=== PATIENT | female | born 1955 | race African-American/Black ===

== ENCOUNTER 2018-06-05 10:53 | Emergency (ER) | payer MEDICAID, SELFPAY ==
[2018-06-05 10:55] VITALS: BP 142/72; PULSE 103; RESP 36; TEMP 36.8; O2SAT 99; BMI 29.6
[2018-06-05 11:56] VITALS: BP 193/102; PULSE 71; RESP 16; O2SAT 98
[2018-06-05 11:56] LABS: Absolute Lymphocyte Count 1.76 X10^3/ul (0.83-4.51); Absolute Neutrophil Count 4.2 X10^3/uL (2.0-7.7); Basophil# 0.02 X10^3/uL; Basophil% 0.3 % (0-1); Eosinophils% 2.9 % (0-5); Hematocrit 40.6 % (37-47); Hemoglobin 13.3 g/dl (12.0-15.0); Lymphocyte # 1.76 X10^3/ul (4.0); Lymphocyte % 25.8 % (19-41); Mean Corp Hgb Conc 32.8 g/gl (32-36); Mean Corpuscular Hgb 30.8 pg (27.0-32.0); Mean Platelet Vol. 9.5 fl (6.2-12.0); Monocyte# 0.64 X10^3/uL; Monocyte% 9.4 % (0-10); Neutrophil # 4.19 X10^3/uL (2.7-7.7); Neutrophil % 61.3 % (47-70); POSITIVE COUNT NO; POSITIVE DIFFERENTIAL NO; POSITIVE MORPHOLOGY NO; Platelet Count 296 K/mm3 (150-450); RBC Distribution Width CV 12.7 % (11.6-14.6); RBC Distribution Width SD 43.7 fl (35.1-43.9); Red Blood Count 4.32 M/mm3 (4.2-5.4); White Blood Count 6.8 K/mm3 (4.4-11.0)
[2018-06-05] MEDS: 0.9% Normal Saline 1,000 ML 999 ML IV (12:00)
[2018-06-05 12:10] LABS: Anion Gap 7 (5-15); BUN 12 mg/dL (7-18); BUN/Creat Ratio 12.3 RATIO (10-20); Calcium,Total 8.8 mg/dL (8.5-10.1); Chloride 107 mmol/L (98-107); Creatinine, Serum 0.98 mg/dL (0.55-1.02); EST Glomerular Filtration Rate 61 mL/min (>60); Est Glom Filt Rate - Afr Amer 74 mL/min (>60); Estimated Creatinine Clearance 45.49 ml/min; Glucose 92 mg/dL (74-106); Potassium 4.2 mmol/L (3.5-5.1); Sodium Level 138 mmol/L (136-145)
--- NOTE | 2018-06-05 12:38 | ED.VISSUMM ---
- ER Visit Summary Date of Service: 06/05/18 Chief Complaint: Dizziness History of Present Illness: The patient is a 62 F who presents with dizziness. It started this morning. She states that she felt dizzy and had some nausea and vomiting this morning. She describes this dizziness as lightheadedness and shaky. She denies any abdominal pain. No chest pain. She feels mildly short of breath. EMS was called and upon arrival she was hyperventilating. Her symptoms did get better with coaching. Physical Examination: Vital signs reviewed. HEENT exam unremarkable. Heart is regular rate and rhythm without murmurs. Lungs are clear to auscultation. Abdomen is soft and nontender. Extremities reveal no edema. Skin exam normal. Neurologic exam shows that she is mildly tremulous. She is hyperventilating at times. Test Results: CBC and BMP are normal Emergency Department Course and Treatment: Patient was hydrated with normal saline. Her blood pressure was elevated upon arrival but is now 130/100. She feels much better. Patient will be discharged home. She will follow-up with her PCP. Treatment Plan: [] Disposition: Discharge Impression: Nausea and vomiting, hyperventilation This note was generated with [employer] dictation software. It may contain incorrect words, spelling, and punctuation that were not noted in review of the chart prior to signing ED Disposition - Plan for ED Patient: Disposition: Home or Assisted Living Instructions: ED Dizziness [facility] Referrals: Piotr Whitaker DO [Primary Care Provider] -
[2018-06-05 12:55] VITALS: BP 185/107; PULSE 70; RESP 16; RESP 18; O2SAT 100; O2SAT 97
== END 2018-06-05 13:13 | disposition home or self-care (01) ==
PROVIDERS: Emergency Provider Emergency Medicine; Family Provider Student in an Organized Health Care Education/Training Program; PCP Student in an Organized Health Care Education/Training Program
DX: R11.2 Nausea with vomiting, unspecified (principal); R06.4 Hyperventilation
CPT/HCPCS: 80048; 85025; 96360; 99283; J7030; A4216

== ENCOUNTER 2019-05-24 15:35 | Emergency (ER) | payer MEDICAID, SELFPAY ==
[2019-05-24] VITALS (7 sets, daily range): BP systolic 174–200; BP diastolic 109–134; PULSE 62–70; RESP 16–26; TEMP 36.4; O2SAT 96–100
--- NOTE | 2019-05-24 15:45 | EKG12_ITS ---
Test Reason : SOB Blood Pressure : / mmHG Vent. Rate : 062 BPM Atrial Rate : 062 BPM P-R Int : 148 ms QRS Dur : 078 ms QT Int : 430 ms P-R-T Axes : 031 -04 036 degrees QTc Int : 436 ms Normal sinus rhythm Moderate voltage criteria for LVH, may be normal variant Borderline ECG Confirmed by MELINA JASMINE, OCTAVIA ([id number]), science editor CIELO WEATHERS ([id number]) on 05/26/2019 1:43:38 PM Referred By: PEDRO Confirmed By:OCTAVIA SUMMERS MD
--- NOTE | 2019-05-24 15:46 | ED.DCSUM_ITS ---
History of Present Illness Chief Complaint: Shortness of Breath Informant: Patient Onset: Today Context: Sudden Onset Timing: Intermittent Current Severity: Moderate Maximum Severity: Moderate Narrative: Patient is a 63-year-old female with history of hypertension and prior smoking history that presents to the emergency department with shortness of breath. Patient states that she woke about 3 this morning. She states that laying flat, she feels like she cannot catch her breath. She states that she takes deep breath and tries to relax, will improve. Later this morning she began to have some central chest tightness that she was able to breathe through and it resolved. Did not radiate to her neck or to her arm. She does admit to some leg swelling bilaterally intermittently. She states that she did have a history of smoking but quit 3 years ago. She denies any history of coronary vascular disease. She states if she exerts herself, she does get winded easily. Prior similar symptoms: No Recent Illness/Hospitalization: No Past Medical History - Allergies and Home Meds Allergies/Adverse Reactions: Allergies No Known Allergies Allergy (Verified 05/24/19 15:38) Primary Care Physician: Piotr Whitaker DO [Primary Care Provider] - Prior records reviewed: Yes Past Medical History: - - Hypertension, smoking history Surgical History: noncontributory Smoking Status: Former smoker Review of Systems General: Denies: Chills, Fever, Sweats Eyes: Denies: Visual changes - bilaterally, Diplopia ENT: Denies: Rhinorrhea, Sore throat Cardiovascular: Denies: Chest pain, Palpitations Respiratory: Reports: Dyspnea, Cough, Dyspnea on exertion Gastrointestinal: Denies: Abdominal pain, Nausea, Vomiting, Diarrhea, Melena, Hematochezia Genitourinary: Denies: Dysuria, Hematuria, Frequency Musculoskeletal: Denies: Back pain, Extremity Pain Skin: Denies: Rash, Wounds Neurological: Denies: Headache, Weakness, Numbness Physical Exam Vital Signs/Narrative: Vital Signs Temp Pulse Resp BP Pulse Ox 05/24/19 15:36 97.5 F L 70 26 H 200/130 H 96 General: Well nourished, Well developed, No Acute Distress Head: Normocephalic, Atraumatic Eyes: Perrl, EOMI ENT: Moist mucous membranes, No rhinorrhea Neck: Supple, Nontender Cardiovascular: Regular rate, Regular rhythm, No murmurs Respiratory: No distress, Chest nontender, Rales, Decreased Air Movement Abdomen: Soft, Nontender, Nondistended, Normal bowel sounds Back: Nontender, Normal Inspection Extremities: Nontender, No edema Skin: Normal color, No rash Neurological: Alert, Oriented x3, Cranial nerves II-XII grossly intact, Normal Strength, Normal Sensation Psychological: Normal affect, Normal Mood Diagnostic/Tx/Re-eval Chest X-Ray - ED: 2 View, Normal, Lungs, Mediastinum, Cardiomegaly Clinical Impression(s) from Imaging Studies Chest X-Ray 05/24/19 15:49 IMPRESSION: 1. Stable cardiomegaly. 2. Linear atelectasis at the left lung base without acute pulmonary disease. Electronically Signed: Luis M Wheeler DO at 17:35 EST Tel [phone], Service support , Chest CTA 05/24/19 17:06 IMPRESSION: 1. No evidence of pulmonary embolus. 2. No aortic dissection or aneurysm. 3. Stable soft tissue mass in the anterior mediastinum. 4. No acute pulmonary disease. Electronically Signed: Luis M Wheeler DO at 18:09 EST Tel [phone], Service support , Abnormal Lab Results 05/24/19 05/24/19 05/24/19 16:12 16:12 16:12 WBC 5.5 RBC 4.07 L Hgb 12.5 Hct 38.5 MCV 94.6 MCH 30.7 MCHC 32.5 RDW Std Deviation 42.4 RDW Coeff of Cj 12.2 Plt Count 308 MPV 10.1 Immature Gran % (Auto) 0.200 Neut % (Auto) 55.6 Lymph % (Auto) 31.2 [place] % (Auto) 8.9 Eos % (Auto) 3.6 Baso % (Auto) 0.5 Absolute Neuts (auto) 3.0 Absolute Lymphs (auto) 1.71 Nucleated RBC % 0 Platelet Estimate ADEQUATE Plt Morphology Comment LARGE RBC Morphology N CHROM Anisocytosis RARE Macrocytosis RARE Sodium 138 Potassium 4.6 Chloride 109 H Carbon Dioxide 26.0 Anion Gap 3 L BUN 14 Creatinine 1.07 H Estim Creat Clear Calc 41.14 Est GFR (MDRD) Af Amer 67 Est GFR (MDRD) Non-Af 55 L BUN/Creatinine Ratio 13.1 Glucose 89 Calcium 9.2 Troponin I 0.019 B-Natriuretic Peptide 298.7 H Urine Color Urine Clarity Urine pH Ur Specific [place] Urine Protein Urine Glucose (UA) Urine Ketones Urine Occult Blood Urine Nitrite Urine Bilirubin Urine Urobilinogen Ur Leukocyte Esterase Urine RBC Urine WBC Ur Squamous Epith Cells Urine Bacteria Urine Mucus 05/24/19 17:12 WBC RBC Hgb Hct MCV MCH MCHC RDW Std Deviation RDW Coeff of Cj Plt Count MPV Immature Gran % (Auto) Neut % (Auto) Lymph % (Auto) [place] % (Auto) Eos % (Auto) Baso % (Auto) Absolute Neuts (auto) Absolute Lymphs (auto) Nucleated RBC % Platelet Estimate Plt Morphology Comment RBC Morphology Anisocytosis Macrocytosis Sodium Potassium Chloride Carbon Dioxide Anion Gap BUN Creatinine Estim Creat Clear Calc Est GFR (MDRD) Af Amer Est GFR (MDRD) Non-Af BUN/Creatinine Ratio Glucose Calcium Troponin I B-Natriuretic Peptide Urine Color Yellow Urine Clarity Clear Urine pH 7.0 Ur Specific [place] 1.010 Urine Protein Negative Urine Glucose (UA) Normal Urine Ketones Negative Urine Occult Blood Negative Urine Nitrite Negative Urine Bilirubin Negative Urine Urobilinogen Normal Ur Leukocyte Esterase Negative Urine RBC 0 SEEN Urine WBC 0 SEEN Ur Squamous Epith Cells 0-5 SEEN Urine Bacteria 0 SEEN Urine Mucus 0 SEEN - Rhythm Strip Rhythm Strip: Sinus Rhythm Rate: 80 Ectopy: None - EKG Initial EKG Interpretation: Sinus Rhythm, No Acute Injury Pattern Prior: Unchanged - Medical Decision Making Patient presents to the emergency department this lability with hypertensive on arrival, but had no chest pain. States she had some scant chest pain this morning that she felt was more anxiety related. EKG was obtained which was sinus without acute ischemia. Cardiac enzymes are normal. Chest x-ray shows cardiomegaly which is unchanged without evidence of acute volume overload. The patient is on oral estrogen medication. With his dyspnea, I did obtain a CTA. This shows no evidence of pulmonary embolus. There is also no pneumonia or evidence of volume overload. The patient was given her home dose of Lopressor with improvement of her blood pressure. I did discuss options with the patient and I did feel that observation for echo would be appropriate given her history, but the patient does not want to stay in the hospital. She has not had any significant chest pain and a rather unremarkable work-up I do feel that this is reasonable. I am not going to make the patient signed out AGAINST MEDICAL ADVICE, but did health counselor her that if her symptoms worsen or she begins to have any chest pain that she should return. She is comfortable with this plan of care. Impression 1. Dyspnea ED Disposition - Plan for ED Patient: Instructions: ED Dyspnea Referrals: Piotr Whitaker DO [Primary Care Provider] -
--- NOTE | 2019-05-24 15:49 | RAD_ITS ---
STUDY: X-RAY CHEST REASON FOR EXAM: Female, 63 years old. Shortness breath TECHNIQUE: Single AP portable view of the chest. COMPARISON: CT of the chest, February 24, 2010. FINDINGS: Lungs well expanded. There is minimal linear atelectasis at the left lung base. There is no demonstrated pleural abnormality. The heart is mildly enlarged. Normal mediastinum and minoo. Normal visualized pulmonary arteries. Tortuous aorta. The thoracic spine is obscured by the mediastinum. Normal visualized ribs, clavicles, and shoulders. There is no demonstrated abnormality of the visualized soft tissue structures of the upper abdomen. RAD/Chest 1 View (Portable) IMPRESSION: 1. Stable cardiomegaly. 2. Linear atelectasis at the left lung base without acute pulmonary disease. Electronically Signed: Luis M Wheeler DO at 17:35 EST Tel [phone], Service support ,
[2019-05-24] MEDS: Aspirin 81 MG TAB.CHEW 324 MG PO (16:04)
[2019-05-24 16:23] LABS: Absolute Lymphocyte Count 1.71 X10^3/uL (0.83-4.51); Basophil# 0.03 X10^3/uL; Basophil% 0.5 % (0-1); Eosinophils% 3.6 % (0-5); Hematocrit 38.5 % (37-47); Hemoglobin 12.5 g/dL (12.0-15.0); Lymphocyte # 1.71 X10^3/ul (4.0); Lymphocyte % 31.2 % (19-41); Mean Corp Hgb Conc 32.5 g/dL (32-36); Mean Corpuscular Hgb 30.7 pg (27.0-32.0); Mean Corpuscular Volume 94.6 fL (81-99); Mean Platelet Vol. 10.1 fl (6.2-12.0); Monocyte# 0.49 X10^3/uL; Monocyte% 8.9 % (0-10); NRBC Flagged by Analyzer 0 % (0-5); Neutrophil # 3.04 X10^3/uL (2.7-7.7); Neutrophil % 55.6 % (47-70); POSITIVE MORPHOLOGY YES; Platelet Count 308 K/mm3 (150-450); RBC Distribution Width CV 12.2 % (11.6-14.6); RBC Distribution Width SD 42.4 fl (35.1-43.9); Red Blood Count 4.07 M/mm3 (4.2-5.4); White Blood Count 5.5 K/mm3 (4.4-11.0)
[2019-05-24 16:24] LABS: Differential Indicated SCAN CRITERIA MET
[2019-05-24] MEDS: Nitroglycerin SL (ED/IMG/CATH) 0.4 MG TABLET SUBLINGUAL (16:40)
[2019-05-24 16:46] LABS: Anisocytosis RARE; Macrocytosis RARE; Platelet Estimate ADEQUATE (ADEQ); Platelet Morphology LARGE; Red Cell Morphology N CHROM NORMAL (NORM C&C)
[2019-05-24 16:55] LABS: Anion Gap 3 (5-15); BUN 14 mg/dL (7-18); BUN/Creat Ratio 13.1 RATIO (10-20); Calcium,Total 9.2 mg/dL (8.5-10.1); Chloride 109 mmol/L (98-107); Creatinine, Serum 1.07 mg/dL (0.55-1.02); EST Glomerular Filtration Rate 55 mL/min (>60); Est Glom Filt Rate - Afr Amer 67 mL/min (>60); Estimated Creatinine Clearance 41.14 ml/min; Glucose 89 mg/dL (74-106); Potassium 4.6 mmol/L (3.5-5.1); Sodium Level 138 mmol/L (136-145)
--- NOTE | 2019-05-24 17:06 | CT_ITS ---
STUDY: CTA CHEST REASON FOR EXAM: Female, 63 years old. Dyspnea. RADIATION DOSAGE (If Supplied By Facility): CTDIvol = ( 14.37 ) mGy, DLP = ( 306.98 ) mGycm TECHNIQUE: The examination was performed with the intravenous administration of IV 75mL Isovue-370. Post-processing of the angiographic images was performed, with multiplanar reformation and 3D reconstruction. Individualized dose optimization techniques were used for this CT. COMPARISON: Chest2019. CT of the chest, February 24, 2010. FINDINGS: Normal enhancement of the main pulmonary artery and right and left pulmonary arteries. Normal enhancement of the bilateral peripheral pulmonary arteries. There is no demonstrated pulmonary embolism. Normal thoracic aorta and visualized great vessels. There is no demonstrated aortic dissection. Normal heart and pericardium. Soft tissue density in the anterior mediastinum measuring 3.1 x 1.8 x 1.0 cm. Normal hilar regions. Normal visualized trachea and bronchi. The lungs are well expanded. Normal pulmonary parenchyma. Normal pleura. Normal chest wall structures. There are mild degenerative changes of the thoracic spine. Normal visualized upper abdomen. CT/CTA Chest W/WO Contrast IMPRESSION: 1. No evidence of pulmonary embolus. 2. No aortic dissection or aneurysm. 3. Stable soft tissue mass in the anterior mediastinum. 4. No acute pulmonary disease. Electronically Signed: Luis M Wheeler DO at 18:09 EST Tel [phone], Service support ,
[2019-05-24 17:13] LABS: BNP,B-Type NATRIURETIC PEPTIDE 298.7 pg/mL (0-100)
[2019-05-24 17:23] LABS: Bacteria 0 SEEN /hpf (None Seen); Mucous, Urine 0 SEEN /hpf (<or=2+); Red Blood Cells-Urine 0 SEEN /hpf (0-5); White Blood Cells 0 SEEN /hpf (0-5)
[2019-05-24 17:37] LABS: Color, Urine Yellow (Yellow); Glucose, Dipstick Normal (Normal); Ketone-Dipstick Negative (Negative); Leukocyte Esterase-Dipstick Negative /ul (Negative); Nitrite-Dipstick Negative (Negative); Occult Blood-Urine Negative /ul (Negative); Protein-Dipstick Negative (Negative); Urine Bilirubin Dipstick Negative (Negative); Urine Clarity Clear (Clear); Urine Urobilinogen Normal (Normal)
[2019-05-24 17:56] LABS: Squamous Epithelial Cells - UA 0-5 SEEN /hpf (5-10)
[2019-05-24] MEDS: Metoprolol Tartrate 50 MG Tablet PO (17:59)
--- NOTE | 2019-05-24 18:38 | NURSING ---
DR. PACHECO NOTIFIED OF BP BY RNWilton BALLARD TO [place].
== END 2019-05-24 18:40 | disposition home or self-care (01) ==
PROVIDERS: Emergency Provider Emergency Medicine; PCP Student in an Organized Health Care Education/Training Program
DX: R06.00 Dyspnea, unspecified (principal); I11.9 Hypertensive heart disease without heart failure; J98.11 Atelectasis; J98.59 Other diseases of mediastinum, not elsewhere classified; Z79.899 Other long term (current) drug therapy; Z87.891 Personal history of nicotine dependence
CPT/HCPCS: 71045; 71275; 80048; 81001; 83880; 84484; 85025; 93005; 99285; Q9967; A4216

== ENCOUNTER 2019-07-12 14:58 | Emergency (ER) | payer MEDICAID, SELFPAY ==
[2019-07-12 14:59] VITALS: BP 165/118; PULSE 93; RESP 20; TEMP 36; O2SAT 100; BMI 29.5
--- NOTE | 2019-07-12 15:09 | RAD_ITS ---
STUDY: X-RAY CHEST REASON FOR EXAM: Female, 63 years old. COUGH, NUMBNESS TECHNIQUE: Single AP portable view of the chest. COMPARISON: None. FINDINGS: Hyperinflation. Stable minimal linear markings in the mid left lung suggestive of scarring. There is no demonstrated pleural abnormality. Normal size heart. Normal mediastinum and minoo. Normal visualized pulmonary arteries. There is atherosclerotic tortuosity of the aortic arch and descending thoracic aorta. There are degenerative changes of the visualized thoracic spine. Normal visualized ribs, clavicles, and shoulders. There is no demonstrated abnormality of the visualized soft tissue structures of the upper abdomen. RAD/Chest 1 View IMPRESSION: Stable linear density in the left midlung suggestive of scarring. Electronically Signed: Enzo Chappell, at 15:27 EDT , Service support ,
--- NOTE | 2019-07-12 15:09 | CT_ITS ---
STUDY: CT BRAIN WITHOUT CONTRAST REASON FOR EXAM: Female, 63 years old. RIGHT ARM NUMBNESS/TONGUE NUMBNESS RADIATION DOSAGE (If Supplied By Facility): CTDIvol = ( 44.99 ) mGy, DLP = ( 745.49 ) mGycm TECHNIQUE: Transaxial CT imaging of the brain was performed without administration of intravenous contrast material. Individualized dose optimization techniques were used for this CT. COMPARISON: No relevant priors. FINDINGS: Normal soft tissue structures. Normal calvarium. Normal size ventricles and extra-axial spaces for the patient''s age. Normal white matter tracts of the cerebral hemispheres. Normal basal ganglia and thalami. Normal brainstem. Normal cerebellum. There is no intracranial hemorrhage. There are no findings of an acute ischemic infarction. Normal visualized paranasal sinuses. CT/Brain/Head without Contrast IMPRESSION: Normal unenhanced CT scan of the brain. Electronically Signed: Enzo Chappell, at 15:35 EDT , Service support ,
--- NOTE | 2019-07-12 15:09 | EKG12_ITS ---
Test Reason : NEURO S/SX Blood Pressure : / mmHG Vent. Rate : 065 BPM Atrial Rate : 065 BPM P-R Int : 160 ms QRS Dur : 090 ms QT Int : 432 ms P-R-T Axes : 054 -06 040 degrees QTc Int : 449 ms Normal sinus rhythm Moderate voltage criteria for LVH, may be normal variant Borderline ECG Confirmed by STONE JASMINE, BRENNAN ([id number]), web editor NAVEED STRAUSS ([id number]) on 07/19/2019 11:08:24 AM Referred By: NARESH Confirmed By:SHADY RITTER MD
--- NOTE | 2019-07-12 15:10 | ED.DCSUM_ITS ---
History of Present Illness Chief Complaint: Numb/Ting Informant: Patient Onset: Today Context: Sudden Onset Timing: Intermittent, Lasts Current Severity: Mild Maximum Severity: Mild - 1 minute Narrative: The patient is a 63-year-old female with medical history significant for hypertension who presents to the emergency department with transient numbness that is since resolved. The patient states she was in her normal state of health. She states she is talking to her and was tapping her hand onto her refrigerator. She states that she then noticed that her hand felt numb and her arm felt numb. She states it lasted less than a minute. She also noticed some numbness of the right side of her tongue. She states this also lasted about a minute. She denies any trouble speaking or swallowing. She denies any visual change. She had no weakness, just the paresthesia. She states she is otherwise been in her normal state of health. She was recently started on amlodipine and has been compliant with it. Prior similar symptoms: No Recent Illness/Hospitalization: No Past Medical History - Allergies and Home Meds Allergies/Adverse Reactions: Allergies No Known Allergies Allergy (Verified 07/12/19 14:59) Primary Care Physician: Piotr Whitaker DO [Primary Care Provider] - 1 Day Prior records reviewed: Yes Past Medical History: - - Hypertension Surgical History: noncontributory Smoking Status: Former smoker Review of Systems General: Denies: Chills, Fever, Sweats Eyes: Denies: Visual changes - bilaterally, Diplopia ENT: Denies: Rhinorrhea, Sore throat Cardiovascular: Denies: Chest pain, Palpitations Respiratory: Denies: Dyspnea, Cough, Dyspnea on exertion Gastrointestinal: Denies: Abdominal pain, Nausea, Vomiting, Diarrhea, Melena, Hematochezia Genitourinary: Denies: Dysuria, Hematuria, Frequency Musculoskeletal: Denies: Back pain, Extremity Pain Skin: Denies: Rash, Wounds Neurological: Denies: Headache, Weakness, Numbness Physical Exam Vital Signs/Narrative: Vital Signs Temp Pulse Resp BP Pulse Ox 07/12/19 14:59 96.8 F L 93 20 H 165/118 H 100 Inital Vital Signs reviewed: Yes General: Well nourished, Well developed, No Acute Distress Head: Normocephalic, Atraumatic Eyes: Perrl, EOMI ENT: Moist mucous membranes, No rhinorrhea Neck: Supple, Nontender Cardiovascular: Regular rate, Regular rhythm, No murmurs Respiratory: No distress, CTA bilaterally, Chest nontender Abdomen: Soft, Nontender, Nondistended, Normal bowel sounds Back: Nontender, Normal Inspection Extremities: Nontender, No edema Skin: Normal color, No rash Neurological: Alert, Oriented x3, Cranial nerves II-XII grossly intact, Normal Strength, Normal Sensation Psychological: Normal affect, Normal Mood Diagnostic/Tx/Re-eval Clinical Impression(s) from Imaging Studies Brain CT 07/12/19 15:09 IMPRESSION: Normal unenhanced CT scan of the brain. Electronically Signed: Enzo Misti, at 15:35 EDT , Service support , Chest X-Ray 07/12/19 15:09 IMPRESSION: Stable linear density in the left midlung suggestive of scarring. Electronically Signed: Enzo Misti, at 15:27 EDT , Service support , Abnormal Lab Results 07/12/19 07/12/19 07/12/19 15:33 15:33 15:33 WBC 5.1 RBC 4.21 Hgb 13.1 Hct 39.9 MCV 94.8 MCH 31.1 MCHC 32.8 RDW Std Deviation 42.5 RDW Coeff of Cj 12.2 Plt Count 275 MPV 9.8 Immature Gran % (Auto) 0.200 Neut % (Auto) 60.0 Lymph % (Auto) 26.9 [place] % (Auto) 9.1 Eos % (Auto) 3.4 Baso % (Auto) 0.4 Absolute Neuts (auto) 3.0 Absolute Lymphs (auto) 1.36 Nucleated RBC % 0 PT 13.7 INR 1.1 APTT 29.3 Sodium 139 Potassium 3.7 Chloride 108 H Carbon Dioxide 26.0 Anion Gap 5 BUN 17 Creatinine 1.09 H Estim Creat Clear Calc 40.38 Est GFR (MDRD) Af Amer 65 Est GFR (MDRD) Non-Af 54 L BUN/Creatinine Ratio 15.6 Glucose 96 Calcium 9.0 Troponin I < 0.015 - Rhythm Strip Rhythm Strip: Sinus Rhythm Rate: 90 Ectopy: None - EKG Initial EKG Interpretation: Sinus Rhythm, No Acute Injury Pattern Prior: Unchanged - Medical Decision Making The patient is a 63-year-old female presents to the emergency department with 2 minutes of paresthesias of her right arm and right tongue. It is now since resolved. She was hypertensive on arrival, but has an NIH of 0. The patient has an ABCD 2 score of 2. Without intervention, her repeat blood pressure was 150/90. Metabolic work-up was pursued. CT head was unremarkable for acute process. EKG was unremarkable. Labs were normal. I did have a long conversation with the patient. She wants to follow-up as an outpatient, and given her low risk I do feel that this is reasonable. The patient is comfortable with this plan of care. She will be discharged home. Impression 1. Paresthesias of right arm ED Disposition - Plan for ED Patient: Instructions: What Is a TIA? Referrals: Piotr Whitaker DO [Primary Care Provider] - 1 Day
[2019-07-12 15:37] VITALS: BP 179/118; PULSE 80; RESP 19; O2SAT 96
[2019-07-12 15:39] VITALS: BP 174/123; PULSE 72; RESP 15; O2SAT 97
[2019-07-12 15:40] LABS: Absolute Lymphocyte Count 1.36 X10^3/uL (0.83-4.51); Basophil# 0.02 X10^3/uL; Basophil% 0.4 % (0-1); Eosinophil# 0.17 X10^3/uL; Eosinophils% 3.4 % (0-5); Hematocrit 39.9 % (37-47); Hemoglobin 13.1 g/dL (12.0-15.0); Lymphocyte # 1.36 X10^3/ul (4.0); Lymphocyte % 26.9 % (19-41); Mean Corp Hgb Conc 32.8 g/dL (32-36); Mean Corpuscular Hgb 31.1 pg (27.0-32.0); Mean Corpuscular Volume 94.8 fL (81-99); Mean Platelet Vol. 9.8 fl (6.2-12.0); Monocyte# 0.46 X10^3/uL; Monocyte% 9.1 % (0-10); NRBC Flagged by Analyzer 0 % (0-5); Neutrophil # 3.03 X10^3/uL (2.7-7.7); Platelet Count 275 K/mm3 (150-450); RBC Distribution Width CV 12.2 % (11.6-14.6); RBC Distribution Width SD 42.5 fl (35.1-43.9); Red Blood Count 4.21 M/mm3 (4.2-5.4); White Blood Count 5.1 K/mm3 (4.4-11.0)
[2019-07-12 16:11] LABS: Anion Gap 5 (5-15); BUN 17 mg/dL (7-18); BUN/Creat Ratio 15.6 RATIO (10-20); Chloride 108 mmol/L (98-107); Creatinine, Serum 1.09 mg/dL (0.55-1.02); EST Glomerular Filtration Rate 54 mL/min (>60); Est Glom Filt Rate - Afr Amer 65 mL/min (>60); Estimated Creatinine Clearance 40.38 ml/min; Glucose 96 mg/dL (74-106); Potassium 3.7 mmol/L (3.5-5.1); Sodium Level 139 mmol/L (136-145)
[2019-07-12 16:18] LABS: International Normalized Ratio 1.1; Prothrombin Time (Protime)PT. 13.7 SECONDS (11.7-14.9)
[2019-07-12 16:19] LABS: Partial Thromboplast Time 29.3 Seconds (24.1-36.2)
[2019-07-12 16:32] VITALS: BP 172/110; PULSE 88; RESP 16; O2SAT 97
== END 2019-07-12 16:34 | disposition home or self-care (01) ==
LOC: ED 15:13
PROVIDERS: Emergency Provider Emergency Medicine; PCP Student in an Organized Health Care Education/Training Program
DX: R20.2 Paresthesia of skin (principal); R20.0 Anesthesia of skin; I10 Essential (primary) hypertension; Z79.899 Other long term (current) drug therapy; Z87.891 Personal history of nicotine dependence
CPT/HCPCS: 70450; 71045; 80048; 84484; 85025; 85610; 85730; 93005; 96374; 99284; A4216

== ENCOUNTER 2020-06-16 09:48 | Inpatient (IN) | payer MEDICAID, SELFPAY ==
[2020-06-16] VITALS (28 sets, daily range): BP systolic 128–205; BP diastolic 81–134; PULSE 72–92; RESP 11–34; TEMP 35.9–36.6; O2SAT 91–100; BMI 29.7; BMI 28.3
--- NOTE | 2020-06-16 09:59 | EKG12_ITS ---
Test Reason : SOB Blood Pressure : / mmHG Vent. Rate : 083 BPM Atrial Rate : 083 BPM P-R Int : 140 ms QRS Dur : 076 ms QT Int : 386 ms P-R-T Axes : 056 014 067 degrees QTc Int : 453 ms Normal sinus rhythm Possible Left atrial enlargement Left ventricular hypertrophy Abnormal ECG Confirmed by MANUEL JASMINE, MERLE ([id number]), video tape editor CIELO WEATHERS ([id number]) on 06/19/2020 10:56:38 AM Referred By: Confirmed By:MERLE JACKSON MD
--- NOTE | 2020-06-16 10:15 | ED.VIS.GEN ---
History of Present Illness Chief Complaint: Shortness of Breath Informant: Patient Onset: Days - Shortness of breath has gotten worse over the past 5 days Context: Sudden Onset Timing: Continuous Quality: Dyspnea and dyspnea on exertion Location: Respiratory Current Severity: Mild Maximum Severity: Moderate Worsened by: Unable to walk more than 25 feet. Relieved by: Nothing Associated Symptoms: Denies chest pain, swelling. Does report mild nasal congestion. Narrative: Patient is a 64-year-old woman with history hypertension. She states her blood pressure meds have been changed. She denies renal disease. She denies diabetes. She denies history of cardiac disease and specifically congestive heart failure. She denies orthopnea or PND. She denies fever, chills night sweats. Denies ocular, visual auditory symptoms. She does report mild nasal congestion. She denies sinus discomfort. She denies postnasal drainage. Denies sore throat. Denies loss of taste or smell. She denies chest discomfort. She denies nausea, vomiting or diarrhea. She denies dysuria, frequency, urgency or hematuria. She denies swelling, discoloration of her lower extremities and denies pain. She denies symptoms of claudication. She has an occasional cough that is nonproductive. She denies history of VTE. She denies black or maroon-colored stool. Prior similar symptoms: No Recent Illness/Hospitalization: No - Past Medical History (1) History of hypertension Status: Acute Past Medical History - Allergies and Home Meds Allergies/Adverse Reactions: Allergies No Known Allergies Allergy (Verified 06/16/20 09:52) Primary Care Physician: Piotr Whitaker DO [Primary Care Provider] - Prior records reviewed: Yes Surgical History: noncontributory Lives: Spouse/ Significant Other Smoking Status: Former smoker Alcohol: None Drugs: None Review of Systems General: Denies: Chills, Fever, Malaise, Subjective Eyes: Denies: Visual changes - bilaterally, Blurred Vision - bilaterally ENT: Reports: Rhinorrhea. Denies: Bilateral ear pain, Sore throat Cardiovascular: Denies: Chest pain, Palpitations, Heart racing Respiratory: Reports: Dyspnea, Cough, Dyspnea on exertion. Denies: Sputum, Orthopnea, Paroxysmal nocturnal dyspnea Gastrointestinal: Denies: Abdominal pain, Nausea, Vomiting, Diarrhea, Melena, Hematochezia Genitourinary: Denies: Dysuria, Hematuria, Frequency Musculoskeletal: Denies: Myalgias, Arthralgias, Neck pain, Back pain, Swelling, Extremity Pain, -, - Skin: Denies: Rash, Wounds Neurological: Denies: Headache, Weakness, Parasthesia Psych: Denies: Depression Endocrine: Denies: Polyuria, Polydipsia Hematologic: Denies: Easy bruising, Easy bleeding Physical Exam Vital Signs/Narrative: Vital Signs Temp Pulse Resp BP Pulse Ox 06/16/20 09:51 96.6 F L 73 34 H 205/134 H 100 06/16/20 09:49 96.6 F L 79 34 H 205/134 H 99 Inital Vital Signs reviewed: Yes General: Well nourished, Well developed, Acute Distress - And has mild retractions sitting in bed. She is tachypneic. Head: Normocephalic, Atraumatic Eyes: Perrl, EOMI. Negative for: Pale conjunctiva, Scleral icterus ENT: Moist mucous membranes, No rhinorrhea, TM's clear Neck: Supple, Nontender, No lymphadenopathy, No JVD Cardiovascular: Regular rate, Regular rhythm, No murmurs, Normal S1, Normal S2 Respiratory: No distress, CTA bilaterally, Chest nontender Abdomen: Soft, Nontender, Nondistended, Normal bowel sounds, No masses. Negative for: Hepatomegaly, Splenomegaly, Mass, Pulsatile mass Rectal: Deferred Back: Nontender, Normal Inspection. Negative for: CVA tenderness Extremities: Nontender, No edema, - - There is no asymmetry, swelling, discoloration, leg vein distention, palpable cords or tenderness along the distribution of the deep venous system. Skin: Normal color, No rash, No Trauma, - - No stigmata of PAD lower extremities.. Negative for: Cyanosis, Diaphoresis, Jaundice Neurological: Alert, Oriented x3, Cranial nerves II-XII grossly intact, Normal Strength, Normal Sensation Psychological: Normal affect Diagnostic/Tx/Re-eval Chest X-Ray - ED: 1 View, Read by ED Physician, Normal, Heart, Mediastinum, Bony Structures, CHF, - - Silhouette and size is normal. There is no cephalization however there is increased interstitial markings compared to June 2019 and there are curly B-lines. X-ray was interpreted by me at 1115 06/16/20 11:02 Chest 1 View (Portable) [RAD] Stat 06/16/20 10:15 Mucosa - Nose SARS-CoV-2 Antigen (Rapid) - Final Laboratory Results 06/16/20 06/16/20 06/16/20 10:10 10:10 10:10 WBC 5.0 RBC 4.07 L Hgb 12.7 Hct 39.0 MCV 95.8 MCH 31.2 MCHC 32.6 RDW Std Deviation 43.9 RDW Coeff of Cj 12.5 Plt Count 305 MPV 10.6 Immature Gran % (Auto) 0.200 Neut % (Auto) 60.5 Lymph % (Auto) 28.2 [place] % (Auto) 9.1 Eos % (Auto) 1.2 Baso % (Auto) 0.8 Absolute Neuts (auto) 3.0 Absolute Lymphs (auto) 1.40 Nucleated RBC % 0 PT 13.3 INR 1.1 APTT 24.4 Sodium 138 Potassium 4.1 Chloride 106 Carbon Dioxide 27.0 Anion Gap 5 BUN 14 Creatinine 1.05 H Estim Creat Clear Calc 41.38 Est GFR (MDRD) Af Amer 68 Est GFR (MDRD) Non-Af 56 L BUN/Creatinine Ratio 13.3 Glucose 172 H Lactic Acid Calcium 8.9 Total Bilirubin 0.70 AST 84 H ALT 70 H Alkaline Phosphatase 118 H Troponin I < 0.015 B-Natriuretic Peptide Total Protein 7.8 Albumin 3.9 Globulin 3.9 Albumin/Globulin Ratio 1.0 Urine Color Urine Clarity Urine pH Ur Specific [place] Urine Protein Urine Glucose (UA) Urine Ketones Urine Occult Blood Urine Nitrite Urine Bilirubin Urine Urobilinogen Ur Leukocyte Esterase POC Glucose 06/16/20 06/16/20 06/16/20 10:10 10:10 11:00 WBC RBC Hgb Hct MCV MCH MCHC RDW Std Deviation RDW Coeff of Cj Plt Count MPV Immature Gran % (Auto) Neut % (Auto) Lymph % (Auto) [place] % (Auto) Eos % (Auto) Baso % (Auto) Absolute Neuts (auto) Absolute Lymphs (auto) Nucleated RBC % PT INR APTT Sodium Potassium Chloride Carbon Dioxide Anion Gap BUN Creatinine Estim Creat Clear Calc Est GFR (MDRD) Af Amer Est GFR (MDRD) Non-Af BUN/Creatinine Ratio Glucose Lactic Acid 2.2 H* Calcium Total Bilirubin AST ALT Alkaline Phosphatase Troponin I B-Natriuretic Peptide 504.4 H Total Protein Albumin Globulin Albumin/Globulin Ratio Urine Color Urine Clarity Urine pH Ur Specific [place] Urine Protein Urine Glucose (UA) Urine Ketones Urine Occult Blood Urine Nitrite Urine Bilirubin Urine Urobilinogen Ur Leukocyte Esterase POC Glucose 124 H 06/16/20 11:02 WBC RBC Hgb Hct MCV MCH MCHC RDW Std Deviation RDW Coeff of Cj Plt Count MPV Immature Gran % (Auto) Neut % (Auto) Lymph % (Auto) [place] % (Auto) Eos % (Auto) Baso % (Auto) Absolute Neuts (auto) Absolute Lymphs (auto) Nucleated RBC % PT INR APTT Sodium Potassium Chloride Carbon Dioxide Anion Gap BUN Creatinine Estim Creat Clear Calc Est GFR (MDRD) Af Amer Est GFR (MDRD) Non-Af BUN/Creatinine Ratio Glucose Lactic Acid Calcium Total Bilirubin AST ALT Alkaline Phosphatase Troponin I B-Natriuretic Peptide Total Protein Albumin Globulin Albumin/Globulin Ratio Urine Color Straw Urine Clarity Clear Urine pH 8.0 Ur Specific [place] 1.015 Urine Protein Negative Urine Glucose (UA) 50 H Urine Ketones Negative Urine Occult Blood Negative Urine Nitrite Negative Urine Bilirubin Negative Urine Urobilinogen Normal Ur Leukocyte Esterase Negative POC Glucose - EKG Initial EKG Interpretation: Sinus Rhythm - Normal sinus rhythm with a ventricular rate 83. OR interval is 140 ms. Cures duration 76 ms. QT duration is 386 ms. [place] is normal. Patient does have a prominent T waves to suggest left atrial enlargement and there is evidence of LVH which may represent endorgan injury due to uncontrolled hyper - Medical Decision Making Patient appears dyspneic. She states she is not able to walk from room to room. She had difficulty walking up the steps. Need to rule out cardiac versus pulmonary etiology. Work-up included EKG, chest x-ray, CBC to assess white count and rule out anemia. Electrolyte panel to rule out renal dysfunction. If patient's blood pressure remains elevated will initiate treatment. Repeat readings remain high. Most recent blood pressure is 191/120. Patient is on beta-shweta and calcium channel shweta. 20 mg of labetalol was ordered. Patient's lactate elevated. This may be due to the hyperglycemia. Lactic acidosis can be caused from overuse of inhaler; however, patient states she has not used her inhaler this morning.. Therefore it is not due to overuse of her albuterol MDI. This may also represent endorgan injury because of her elevated blood pressure. Will page hospitalist for admission. ALT and AST are elevated this is most likely due to hepatic congestion from endorgan injury, CHF - Critical Care Time Critical care time (excluding procedures): 30-74 minutes - Critical care time 36 minutes. This includes obtaining history, physical exam, review of prior records, documentation, interpretation of laboratory results and initiation of therapy, Discussing w/Patient &/or Family/Salesperson [employer], Discussing w/Consultants, Arranging Admission or Transfer ED Disposition - Plan for ED Patient: Disposition: Acute Care [facility] Diagnosis: Hypertensive emergency, Congestive heart failure due to high blood pressure, Hyperglycemia, Lactic acidosis, Elevated serum creatinine Referrals: Piotr Whitaker DO [Primary Care Provider] -
[2020-06-16 11:01] LABS: Basophil# 0.04 X10^3/uL; Basophil% 0.8 % (0-1); Eosinophil# 0.06 X10^3/uL; Eosinophils% 1.2 % (0-5); Hemoglobin 12.7 g/dL (12.0-15.0); Lymphocyte % 28.2 % (19-41); Mean Corp Hgb Conc 32.6 g/dL (32-36); Mean Corpuscular Hgb 31.2 pg (27.0-32.0); Mean Corpuscular Volume 95.8 fL (81-99); Mean Platelet Vol. 10.6 fl (6.2-12.0); Monocyte# 0.45 X10^3/uL; Monocyte% 9.1 % (0-10); NRBC Flagged by Analyzer 0 % (0-5); Neutrophil % 60.5 % (47-70); Platelet Count 305 K/mm3 (150-450); RBC Distribution Width CV 12.5 % (11.6-14.6); RBC Distribution Width SD 43.9 fl (35.1-43.9); Red Blood Count 4.07 M/mm3 (4.2-5.4)
--- NOTE | 2020-06-16 11:02 | RAD_ITS ---
STUDY: X-RAY CHEST REASON FOR EXAM: Female, 64 years old. Pt having increased sob x 5 days, difficulty breathing, tachypnea TECHNIQUE: Single AP portable view of the chest. COMPARISON: Comparison is made with prior study dated 07/12/2019. FINDINGS: EKG leads are seen. There is evidence of a mild degree of CHF. There is no demonstrated pleural abnormality. There is borderline cardiomegaly. Normal mediastinum and minoo. Normal visualized pulmonary arteries. There is atherosclerotic tortuosity of the aortic arch and descending thoracic aorta. Normal visualized thoracic spine. Normal visualized ribs, clavicles, and shoulders. There is no demonstrated abnormality of the visualized soft tissue structures of the upper abdomen. RAD/Chest 1 View (Portable) IMPRESSION: Mild degree of CHF. Electronically Signed: Enzo Chappell MD at 11:38 EST , Service support ,
[2020-06-16 11:06] LABS: Bedside Glucose 124 mg/dL (70-110)
[2020-06-16 11:13] LABS: Mucous, Urine 0 SEEN /hpf (<or=2+); Red Blood Cells-Urine 0 SEEN /hpf (0-5); White Blood Cells 0 SEEN /hpf (0-5)
[2020-06-16 11:15] LABS: AST(SGOT) 84 U/L (15-37); Alanine Aminotransfer ALT/SGPT 70 U/L (13-56); Albumin, Serum 3.9 g/dL (3.2-5.0); Alkaline Phosphatase 118 U/L (45-117); Anion Gap 5 (5-15); BUN 14 mg/dL (7-18); BUN/Creat Ratio 13.3 RATIO (10-20); Calcium,Total 8.9 mg/dL (8.5-10.1); Chloride 106 mmol/L (98-107); Creatinine, Serum 1.05 mg/dL (0.55-1.02); EST Glomerular Filtration Rate 56 mL/min (>60); Est Glom Filt Rate - Afr Amer 68 mL/min (>60); Estimated Creatinine Clearance 41.38 ml/min; Globulin 3.9 g/dL (2.2-4.2); Glucose 172 mg/dL (74-106); Potassium 4.1 mmol/L (3.5-5.1); Protein, Total 7.8 g/dL (6.4-8.2); Sodium Level 138 mmol/L (136-145)
[2020-06-16 11:18] LABS: International Normalized Ratio 1.1; Prothrombin Time (Protime)PT. 13.3 SECONDS (11.7-14.9)
[2020-06-16 11:19] LABS: BNP,B-Type NATRIURETIC PEPTIDE 504.4 pg/mL (0-100); Partial Thromboplast Time 24.4 Seconds (24.1-36.2)
[2020-06-16] MEDS: Labetalol (Prefilled) 20 MG/4 ML IV (11:22)
[2020-06-16 11:26] LABS: Color, Urine Straw (Yellow); Glucose, Dipstick 50 mg/dl (Normal); Ketone-Dipstick Negative (Negative); Leukocyte Esterase-Dipstick Negative /ul (Negative); Nitrite-Dipstick Negative (Negative); Occult Blood-Urine Negative /ul (Negative); Protein-Dipstick Negative (Negative); Specific Gravity, Urine 1.015 (1.002-1.030); Urine Bilirubin Dipstick Negative (Negative); Urine Clarity Clear (Clear); Urine Urobilinogen Normal (Normal)
[2020-06-16 11:28] LABS: Lactic Acid 2.2 mmol/L (0.4-1.9)
[2020-06-16 11:37] LABS: Bacteria RARE /hpf (None Seen); Squamous Epithelial Cells - UA 0-5 SEEN /hpf (5-10)
--- NOTE | 2020-06-16 12:24 | HP.PCM_ITS ---
Problem List (1) Hypertension Status: Chronic (2) Acute pulmonary edema Status: Acute (3) Hypertensive emergency Status: Acute (4) Hyperglycemia Status: Acute (5) Lactic acidosis Status: Acute History of Present Illness Date of Admission: 06/16/20 Chief Complaint: Shortness of breath. The patient is a 64 year old F with past medical history as mentioned above presented to the emergency room because of shortness of breath. Patient stated that 1 week ago, she had an episode of shortness of breath when she was laying flat, felt very short of breath all of a sudden, woke up from sleep and after a few minutes, she felt better. She describes a classical orthopnea. After that episode, she felt better over the last few days until yesterday. Yesterday, she had similar episode of shortness of breath when she was lying flat, nonexertional, relieved upon sitting up and standing and without other associated symptoms. This morning, she had a similar episode of orthopnea and she decided to come to the emergency department. She reported associated cough with minimal sputum. She denies fever or chills. She denied chest pain, palpitation, dizziness or lightheadedness. She does have a history of hypertension that was diagnosed 2 years ago and her PCP increased her dosage of antihypertensives around 1 week ago. She mentioned that her blood pressure is usually uncontrolled and usually high. In the emergency department, her blood pressure initially was 205/134. She was afebrile, heart rate stable, pulse ox was 99% on room air. Routine blood work was remarkable for blood glucose of 172, otherwise normal. Lactic acid was 2.2. LFT revealed slight elevated liver transaminases. Troponin was negative. EKG revealed normal sinus rhythm, normal CO interval, normal QRS, normal QTC, no acute segment changes. BNP was 504. Chest x-ray revealed mild bilateral pulmonary vascular congestion with curly B- lines. Urinalysis showed no evidence of UTI. She was started on IV nicardipine drip in the ED and his blood pressure started to improve. She is being admitted for acute pulmonary edema due to hypertensive emergency, lactic acidosis and hypoglycemia. Past Medical History Past Medical History (Chronic Problems): Chronic Problems Hypertension (Chronic) Allergies No Known Allergies Allergy (Verified 06/16/20 09:52) Home Medications: Ambulatory Orders Medication Instructions Recorded Albuterol Sulfate [Albuterol 1 - 2 puff INHALATION Q4H PRN 05/24/19 Sulfate Hfa] Estradiol 1 mg PO DAILY 05/24/19 Metoprolol(XL)Succ [Toprol Xl 50 mg PO DAILY 05/24/19 (Beta Shyla)] Progesterone, Micronized 200 mg PO QMONTH 05/24/19 [Progesterone] Terbinafine HCl 250 mg PO DAILY 05/24/19 Amlodipine [Norvasc] 5 mg PO DAILY 07/12/19 Surgical History: herniorrhaphy, - - section. Psychiatric History: No pertinent psych hx [employer]IV[employer] DES[employer]ER History: No pertinent [employer]IV[employer] DES[employer]ER history Lives: Spouse/ Significant Other Smoking Status: Former smoker Alcohol: Rare Drugs: None - *Family History Maternal History Items: No pertinent history Paternal History Items: No pertinent history Review of Systems Constitutional: Denies: Anorexia, Chills, Fever, Weakness Eyes: Denies: Blurred vision, Double vision, Drainage, Redness HEENT: Denies: Difficulty Hearing, Ear Pain, Eye Pain, Nasal Congestion, Sore Throat Cardiovascular: Reports: Orthopnea. Denies: Chest Pain, Chest Pressure, Chest Tightness, Heaviness, Light Headedness, Palpitations, Syncope Respiratory: Reports: Cough, Shortness of Breath, Sputum production. Denies: Wheezing Gastrointestinal: Reports: Nausea. Denies: Abdominal Pain, Constipation, Diarrhea, Vomiting Genitourinary: Denies: Dysuria, Frequency, Hematuria Musculoskeletal: Denies: Arm Pain, Back Pain, Foot Pain Skin: Denies: Dryness, Rash Neurological: Denies: Balance problems, Double vision, Change in Speech, Slurred speech, Headaches, Numbness, Tingling Psychiatric: Denies: Anxiety, Depression Endocrine: Denies: Change in Body Habitus, Polydipsia, Polyuria VTE Information - Inpt Only VTE Present on Admission: No VTE Mechan Device Prophylaxis: None VTE Pharm Prophylaxis ordered?: Yes Patient Problems: Active and Suspected Problems Hypertensive emergency (Acute) Hyperglycemia (Acute) Lactic acidosis (Acute) - Physical Exam Vitals/I&O's: Vital Signs Temp Pulse Resp BP Pulse Ox 96.6 F L 80 22 H 182/122 H 99 06/16/20 09:51 06/16/20 11:37 06/16/20 11:37 06/16/20 11:37 06/16/20 11:37 Oxygen Delivery Method Room Air Weight: 157 lb 10.088 oz Body Mass Index (BMI) 29.7 Finger Stick Blood Glucose 124 General: Alert, Oriented x3, Cooperative, No apparent distress HEENT: Atraumatic, PERRLA, EOMI, Normocephalic Oral: Moist Mucosa, No Gingival or Mucosal Lesions/ Ulcerations Neck: Supple, No JVD, Negative Carotid Bruits, Trachea Midline, Thyroid Normal Size and Texture Lungs: Clear to auscultation, Normal air movement, No rhonchi, No wheeze, No rales Cardiovascular: Regular rate, Regular Rhythm, Normal S1, Normal S2, PMI Normal Abdomen: Bowel Sounds Present, Soft, Non Tender, Non-Distended, No Hepato- splenomegaly Extremities: No clubbing, No cyanosis, No edema Skin: No rashes, No breakdown Lymphatic: No Cervical, Supraclavicular, or Inguinal Adenopathy Neurological: Cranial nerves II-XII grossly intact, Motor Exam 5/5 strength throughout Psych/Mental Status: Normal Affect, Appropriate, Alert and oriented to time, place, person, mood and affect Microbiology Past 72 Hours 06/16/20 10:15 Mucosa - Nose SARS-CoV-2 Antigen (Rapid) - Final Laboratory Results 06/16/20 10:10: WBC 5.0, RBC 4.07 L, Hgb 12.7, Hct 39.0, MCV 95.8, MCH 31.2, MCHC 32.6, RDW Std Deviation 43.9, RDW Coeff of Cj 12.5, Plt Count 305, MPV 10.6, Immature Gran % (Auto) 0.200, Neut % (Auto) 60.5, Lymph % (Auto) 28.2, [place] % (Auto) 9.1, Eos % (Auto) 1.2, Baso % (Auto) 0.8, Absolute Neuts (auto) 3.0, Absolute Lymphs (auto) 1.40, Nucleated RBC % 0 06/16/20 10:10: PT 13.3, INR 1.1, APTT 24.4 06/16/20 10:10: Sodium 138, Potassium 4.1, Chloride 106, Carbon Dioxide 27.0, Anion Gap 5, BUN 14, Creatinine 1.05 H, Estim Creat Clear Calc 41.38, Est GFR (MDRD) Af Amer 68, Est GFR (MDRD) Non-Af 56 L, BUN/Creatinine Ratio 13.3, Glucose 172 H, Calcium 8.9, Total Bilirubin 0.70, AST 84 H, ALT 70 H, Alkaline Phosphatase 118 H, Troponin I < 0.015, Total Protein 7.8, Albumin 3.9, Globulin 3.9, Albumin/Globulin Ratio 1.0 06/16/20 10:10: Lactic Acid 2.2 H* 06/16/20 10:10: B-Natriuretic Peptide 504.4 H 06/16/20 11:00: POC Glucose 124 H 06/16/20 11:02: Urine Color Straw, Urine Clarity Clear, Urine pH 8.0, Ur Specific [place] 1.015, Urine Protein Negative, Urine Glucose (UA) 50 H, Urine Ketones Negative, Urine Occult Blood Negative, Urine Nitrite Negative, Urine Bilirubin Negative, Urine Urobilinogen Normal, Ur Leukocyte Esterase Negative, Urine RBC 0 SEEN, Urine WBC 0 SEEN, Ur Squamous Epith Cells 0-5 SEEN, Urine Bacteria RARE, Urine Mucus 0 SEEN Clinical Impression(s) from Imaging Studies Chest X-Ray 06/16/20 11:02 IMPRESSION: Mild degree of CHF. Electronically Signed: Enzo Chappell MD at 11:38 EST , Service support , Current Medications Nicardipine/Dextrose (Cardene-Dex 20 Mg/200 Ml Soln) 20 mg in 200 mls @ 50 mls/hr CONT INF Q4H [facility]; Protocol Last Admin: 06/16/20 11:37 Dose: 5 mg/hr, 50 mls/hr Documented by: Assessment/Plan All Active Problems Acute pulmonary edema (Acute) Hypertensive emergency (Acute) Hyperglycemia (Acute) Lactic acidosis (Acute) This is a 64 years old female patient presented to the emergency room because of shortness of breath and orthopnea, found to have high elevated blood pressure and pulmonary vascular congestion with curly B-lines on chest x-ray consistent with acute pulmonary edema due to hypertensive emergency and also found to have hyperglycemia and lactic acidosis. #1 acute pulmonary edema: Chest x-ray reviewed. EKG revealed normal sinus rhythm without evidence of acute ischemic changes. Troponin is negative. BNP is elevated. Patient was started on IV nicardipine drip. Blood pressure started to come down. Plan: Admit to ICU, critical care monitoring, complete bedrest, continue IV nicardipine drip, serial cardiac enzymes, 2D echocardiogram, critical care consult, repeat CBC and CMP tomorrow morning, PT OT evaluation and treatment when appropriate. #2 hypertensive emergency: Based on systolic blood pressure of more than 180 in addition to evidence of endorgan damage which is the acute pulmonary edema. At this time, no evidence of stroke or SD. Plan to continue IV nicardipine drip, close monitoring, resume antihypertensive home medications when medication list updated. #3 hyperglycemia: Without history of diabetes. Blood sugars 172. Plan: Hemoglobin A1c, Accu-Cheks, sliding scale. #4 lactic acidosis: This is likely due to her elevated blood pressure. No evidence of infection, afebrile, no leukocytosis. Plan for IV fluids, repeat lactic acid in 3 hours. #5 elevated LFT: This is probably due to hepatic congestion secondary to pulmonary edema. Liver transaminases and alk phos is slightly deviated. Patient denied any right upper quadrant abdominal pain. Plan as above, repeat LFT tomorrow morning. #6 hypertension: Plan as above, resume home medications on home medication list updated. #7 DVT prophylaxis: Subcu Lovenox. This note was generated with [employer] dictation software. It may contain incorrect words, spelling, and punctuation that were not noted in checking the note before signing. Inpatient E&M: 70237 Init Hosp L3
--- NOTE | 2020-06-16 13:13 | ECHOD_ITS ---
Reason For Study: CHF Procedure This was a 2D Doppler, Color Flow transthoracic echocardiogram. Exam performed portable in ICU/CCU. Left Ventricle Normal LV size. Left ventricular systolic function is lower limits of normal. The estimated ejection fraction is 50 %. No regional wall motion abnormalities noted. Right Ventricle Normal RV size. Normal systolic function. Atria The left atrium is moderately enlarged. Normal right atrium. Mitral Valve Bileaflet diffuse mitral valve thickening. Mild-Moderate (1-2+) eccentric mitral valve insufficiency. Tricuspid Valve Normal tricuspid valve. Mild to moderate (1-2+) tricuspid valve insufficiency. Pulmonary artery systolic pressure is 52 mmHg. Moderate pulmonary hypertension. Aortic Valve Trisinus/trileaflet aortic valve. Pulmonic Valve Normal pulmonic valve. Great Vessels Normal aortic root. The pulmonary artery is normal size. No collapse of the inferior vena cava. Pericardium/Pleural No pericardial effusion. MMode/2D Measurements & Calculations LVIDd: 4.8 cm IVSd: 0.92 cm Ao root diam: 3.4 cm LVIDs: 3.5 cm LVPWd: 0.97 cm RVDd: 3.3 cm FS: 25.9 % LAV(MOD-bp): 89.6 ml LA A4 area: 25.0 cm2 LA dimension(2D): 4.1 cm LAV(MOD-bp) Indexed: 52.6 ml/m2 LAV(MOD-sp2): 99.0 ml LAV(MOD-sp4): 76.2 ml RA A4 area: 15.6 cm2 Time Measurements MV dec time: 0.15 sec Doppler Measurements & Calculations MV E max dave: 140.8 cm/sec Lat Peak E' Dave: 6.4 cm/sec Med Peak E' Dave: 4.8 cm/sec MV A max dave: 95.0 cm/sec E/E' lat: 22.0 E/E' med: 29.1 MV E/A: 1.5 MV V2 max: 126.4 cm/sec Ao V2 max: 141.9 cm/sec LV V1 max: 104.3 cm/sec MV max P.4 mmHg Ao max P.1 mmHg LV V1 max P.4 mmHg MV V2 mean: 86.6 cm/sec MV mean P.2 mmHg MV V2 VTI: 33.8 cm MR max dave: 605.6 cm/sec PA V2 max: 103.1 cm/sec TR max dave: 348.8 cm/sec MR max P.7 mmHg TR max P.7 mmHg MR mean dave: 469.9 cm/sec MR mean P.9 mmHg MR VTI: 202.3 cm MV P1/2t-pr_phl: 83.5 msec Interpretation Summary Normal LV size. Left ventricular systolic function is lower limits of normal. The estimated ejection fraction is 50 %. The left atrium is moderately enlarged. Mild-Moderate (1-2+) eccentric mitral valve insufficiency. Pulmonary artery systolic pressure is 52 mmHg. Moderate pulmonary hypertension. Ordering Physician: Kiana Balderrama Referring Physician: BRENT DALEY Performed By: Naomi Shelley, SARAH, RVT
[2020-06-16] MEDS: 0.9% Normal Saline 1,000 ML 75 ML IV (14:18)
[2020-06-16] MEDS: TITRATION PARAMETER CHANGE 1 EACH IV (14:18)
[2020-06-16 14:51] LABS: Reflex Lactate? Y
[2020-06-16 14:55] LABS: Hemoglobin A1c 5.1 % (3.8-5.6)
[2020-06-16 16:18] LABS: Lactic Acid 1.6 mmol/L (0.4-1.9)
[2020-06-16] MEDS: Nicardipine HCl-0.9% Sod Chlor 20 MG/200 ML IV.SOLN 25 MG CONT INF (18:00)
--- NOTE | 2020-06-16 19:58 | NURSING ---
Spoke with patient's sister and was given update on POC.
[2020-06-17] VITALS (28 sets, daily range): BP systolic 124–172; BP diastolic 71–108; PULSE 61–84; RESP 14–25; TEMP 36.1–37.1; O2SAT 95–100
[2020-06-17] MEDS: 0.9% Normal Saline 1,000 ML 75 ML IV (03:14)
[2020-06-17 04:31] LABS: Absolute Lymphocyte Count 1.36 X10^3/uL (0.83-4.51); Absolute Neutrophil Count 2.8 X10^3/uL (2.0-7.7); Basophil# 0.02 X10^3/uL; Basophil% 0.4 % (0-1); Eosinophil# 0.13 X10^3/uL; Eosinophils% 2.7 % (0-5); Hematocrit 38.6 % (37-47); Hemoglobin 12.7 g/dL (12.0-15.0); Lymphocyte # 1.36 X10^3/ul (4.0); Lymphocyte % 28.5 % (19-41); Mean Corp Hgb Conc 32.9 g/dL (32-36); Mean Corpuscular Hgb 31.1 pg (27.0-32.0); Mean Corpuscular Volume 94.4 fL (81-99); Mean Platelet Vol. 10.1 fl (6.2-12.0); Monocyte# 0.42 X10^3/uL; Monocyte% 8.8 % (0-10); NRBC Flagged by Analyzer 0 % (0-5); Neutrophil # 2.83 X10^3/uL (2.7-7.7); Neutrophil % 59.4 % (47-70); POSITIVE MORPHOLOGY YES; Platelet Count 281 K/mm3 (150-450); RBC Distribution Width CV 12.4 % (11.6-14.6); RBC Distribution Width SD 43.2 fl (35.1-43.9); Red Blood Count 4.09 M/mm3 (4.2-5.4); White Blood Count 4.8 K/mm3 (4.4-11.0)
[2020-06-17 04:34] LABS: Differential Indicated SCAN CRITERIA MET
[2020-06-17 05:01] LABS: ALB/GLOB Ratio 0.9 RATIO (0.9-2.4); AST(SGOT) 44 U/L (15-37); Alanine Aminotransfer ALT/SGPT 53 U/L (13-56); Albumin, Serum 3.5 g/dL (3.2-5.0); Alkaline Phosphatase 103 U/L (45-117); Anion Gap 7 (5-15); BUN 10 mg/dL (7-18); BUN/Creat Ratio 11.7 RATIO (10-20); Calcium,Total 8.6 mg/dL (8.5-10.1); Chloride 107 mmol/L (98-107); Creatinine, Serum 0.86 mg/dL (0.55-1.02); EST Glomerular Filtration Rate 71 mL/min (>60); Est Glom Filt Rate - Afr Amer 86 mL/min (>60); Estimated Creatinine Clearance 50.53 ml/min; Globulin 3.8 g/dL (2.2-4.2); Glucose 123 mg/dL (74-106); Potassium 3.5 mmol/L (3.5-5.1); Protein, Total 7.3 g/dL (6.4-8.2); Sodium Level 140 mmol/L (136-145)
[2020-06-17 05:03] LABS: Differential Comment SCANNED
[2020-06-17 05:05] LABS: Atypical Lymphocyte 1+ %
[2020-06-17] MEDS: amLODIPine 5 MG Tablet PO ×2 (08:30→09:25)
[2020-06-17] MEDS: Metoprolol(XL)Succ 50 MG Tablet PO (08:31)
--- NOTE | 2020-06-17 09:59 | PCM.PROGNOTE ---
Patient Problems: Active and Suspected Problems Acute pulmonary edema (Acute) Hypertensive emergency (Acute) Hyperglycemia (Acute) Lactic acidosis (Acute) Subjective: Chief complaint: Follow-up after admission for acute pulmonary edema, hypertensive emergency, hyperglycemia and lactic acidosis. Patient seen and examined. No acute events overnight. This morning, she is feeling much better. She denies any more orthopnea, denies shortness of breath. She denied chest pain. She has been off IV nicardipine drip. Blood pressure improved. Other vital signs are stable. - Physical Exam Vitals/I&O's: Vital Signs Temp Pulse Resp BP Pulse Ox 97.1 F L 84 17 172/107 H 99 06/17/20 08:00 06/17/20 09:00 06/17/20 09:00 06/17/20 09:00 06/17/20 09:00 Oxygen Delivery Method Room Air Weight: 152 lb 8.958 oz Body Mass Index (BMI) 28.3 Finger Stick Blood Glucose 124 Intake and Output for Last 24 Hours 06/15/20 06/16/20 06/17/20 23:59 23:59 23:59 Intake Total 306.25 / 331.25 1127.5 / 1127.5 Output Total 1400 / 1700 550 / 550 Balance -1093.75 / -1368.75 577.5 / 577.5 General: Alert, Oriented x3, Cooperative, No apparent distress HEENT: Atraumatic, PERRLA, EOMI, Normocephalic Oral: Moist Mucosa, No Gingival or Mucosal Lesions/ Ulcerations Neck: Supple, No JVD, Negative Carotid Bruits, Trachea Midline, Thyroid Normal Size and Texture Lungs: Clear to auscultation, Normal air movement, No rhonchi, No wheeze, No rales Cardiovascular: Regular rate, Regular Rhythm, Normal S1, Normal S2, PMI Normal Abdomen: Bowel Sounds Present, Soft, Non Tender, Non-Distended, No Hepato-splenomegaly Extremities: No clubbing, No cyanosis, No edema Skin: No rashes, No breakdown Lymphatic: No Cervical, Supraclavicular, or Inguinal Adenopathy Neurological: Cranial nerves II-XII grossly intact, Motor Exam 5/5 strength throughout Psych/Mental Status: Normal Affect, Appropriate, Alert and oriented to time, place, person, mood and affect Microbiology Past 72 Hours 06/16/20 10:15 Mucosa - Nose SARS-CoV-2 Antigen (Rapid) - Final Laboratory Results 06/16/20 10:10: WBC 5.0, RBC 4.07 L, Hgb 12.7, Hct 39.0, MCV 95.8, MCH 31.2, MCHC 32.6, RDW Std Deviation 43.9, RDW Coeff of Cj 12.5, Plt Count 305, MPV 10.6, Immature Gran % (Auto) 0.200, Neut % (Auto) 60.5, Lymph % (Auto) 28.2, Mellette % (Auto) 9.1, Eos % (Auto) 1.2, Baso % (Auto) 0.8, Absolute Neuts (auto) 3.0, Absolute Lymphs (auto) 1.40, Nucleated RBC % 0 06/16/20 10:10: PT 13.3, INR 1.1, APTT 24.4 06/16/20 10:10: Sodium 138, Potassium 4.1, Chloride 106, Carbon Dioxide 27.0, Anion Gap 5, BUN 14, Creatinine 1.05 H, Estim Creat Clear Calc 41.38, Est GFR (MDRD) Af Amer 68, Est GFR (MDRD) Non-Af 56 L, BUN/Creatinine Ratio 13.3, Glucose 172 H, Calcium 8.9, Total Bilirubin 0.70, AST 84 H, ALT 70 H, Alkaline Phosphatase 118 H, Troponin I < 0.015, Total Protein 7.8, Albumin 3.9, Globulin 3.9, Albumin/Globulin Ratio 1.0 06/16/20 10:10: Lactic Acid 2.2 H* 06/16/20 10:10: B-Natriuretic Peptide 504.4 H 06/16/20 11:00: POC Glucose 124 H 06/16/20 11:02: Urine Color Straw, Urine Clarity Clear, Urine pH 8.0, Ur Specific Noble 1.015, Urine Protein Negative, Urine Glucose (UA) 50 H, Urine Ketones Negative, Urine Occult Blood Negative, Urine Nitrite Negative, Urine Bilirubin Negative, Urine Urobilinogen Normal, Ur Leukocyte Esterase Negative, Urine RBC 0 SEEN, Urine WBC 0 SEEN, Ur Squamous Epith Cells 0-5 SEEN, Urine Bacteria RARE, Urine Mucus 0 SEEN 06/16/20 14:15: Hemoglobin A1c 5.1 06/16/20 14:15: Troponin I < 0.015 06/16/20 15:25: Lactic Acid 1.6 06/16/20 17:25: Troponin I < 0.015 06/17/20 04:20: WBC 4.8, RBC 4.09 L, Hgb 12.7, Hct 38.6, MCV 94.4, MCH 31.1, MCHC 32.9, RDW Std Deviation 43.2, RDW Coeff of Cj 12.4, Plt Count 281, MPV 10.1, Immature Gran % (Auto) 0.200, Neut % (Auto) 59.4, Lymph % (Auto) 28.5, Mellette % (Auto) 8.8, Eos % (Auto) 2.7, Baso % (Auto) 0.4, Absolute Neuts (auto) 2.8, Absolute Lymphs (auto) 1.36, Nucleated RBC % 0, Differential Comment SCANNED, Atypical Lymphocytes 1+ 06/17/20 04:20: Sodium 140, Potassium 3.5, Chloride 107, Carbon Dioxide 26.0, Anion Gap 7, BUN 10, Creatinine 0.86, Estim Creat Clear Calc 50.53, Est GFR (MDRD) Af Amer 86, Est GFR (MDRD) Non-Af 71, BUN/Creatinine Ratio 11.7, Glucose 123 H, Calcium 8.6, Total Bilirubin 1.20 H, AST 44 H, ALT 53, Alkaline Phosphatase 103, Total Protein 7.3, Albumin 3.5, Globulin 3.8, Albumin/Globulin Ratio 0.9 Current Medications Acetaminophen (Acetaminophen 325 Mg Tablet) 650 mg PO Q6H PRN PRN PRN Reason: Pain Score 1-10/Temp > 100.7 F Amlodipine Besylate (Amlodipine 10 Mg Tablet) 10 mg PO DAILY CARY Enoxaparin Sodium (Enoxaparin 40 Mg/0.4 Ml Syringe) 40 mg SC DAILY CARY Hydralazine HCl (Hydralazine 20 Mg/Ml Vial) 10 mg IV Q6H PRN PRN PRN Reason: for SBP>160/90 Sodium Chloride () 250 mls @ 15 mls/hr IV .[id number] PRN PRN Reason: Saline Flush Sodium Chloride () 250 mls @ 15 mls/hr IV .[id number] PRN PRN Reason: Additional IVPB Infusion Metoprolol Succinate (Metoprolol(Xl)Succ 50 Mg Tablet) 50 mg PO DAILY CARY Last Admin: 06/17/20 08:31 Dose: 50 mg Documented by: Ondansetron HCl (Ondansetron 4 Mg/2 Ml Vial) 4 mg IV Q8H PRN PRN PRN Reason: NAUSEA/VOMITING Senna/Docusate Sodium (Senna/Docusate Sodium 1 Tablet) 2 tablet PO BID PRN PRN Reason: Constipation Sodium Chloride (0.9% Saline Lock 10 Ml Syringe) 10 - 40 ml IV UD PRN PRN Reason: SALINE FLUSH Zolpidem Tartrate (Zolpidem Tartrate 5 Mg Tablet) 5 mg PO QHS PRN PRN PRN Reason: INSOMNIA Medical Necessity - Tobacco Use Smoking Status: Former smoker Tobacco Use: Cigarettes Assessment/Plan All Active Problems Acute pulmonary edema (Acute) Hypertensive emergency (Acute) Hyperglycemia (Acute) Lactic acidosis (Acute) This is a 64 years old female patient presented to the emergency room because of shortness of breath and orthopnea, found to have high elevated blood pressure and pulmonary vascular congestion with curly B-lines on chest x-ray consistent with acute pulmonary edema due to hypertensive emergency and also found to have hyperglycemia and lactic acidosis. #1 acute pulmonary edema: She has been off IV nicardipine drip for several hours, blood pressure is down to around 170 systolic. Patient denied any symptoms of orthopnea or shortness of breath, no chest pain. EKG revealed normal sinus rhythm without evidence of acute ischemic changes. Troponin was negative x3. 2D echocardiogram revealed ejection fraction 50%, moderate pulmonary hypertension. Plan: Resume Norvasc at 10 mg p.o. daily, resume metoprolol, start IV hydralazine as needed, transfer to PCU, anticipate discharge home tomorrow. #2 hypertensive emergency: As mentioned above, patient has been on IV nicardipine drip for several hours, blood pressure start to come down. She has no more symptoms. Plan as above, start Norvasc and metoprolol, hydralazine as needed. #3 hyperglycemia: Without history of diabetes. Hemoglobin A1c was 5.1, diabetes ruled out. #4 lactic acidosis: This is likely due to her elevated blood pressure. No evidence of infection, afebrile, no leukocytosis. Lactic acid is back to normal with IV fluids. She has been afebrile, no leukocytosis. #5 elevated LFT: Secondary to hepatic congestion due to pulmonary edema. Liver transaminases and alkaline phosphatase are back to normal on repeat LFT. #6 hypertension: Plan as above. #7 DVT prophylaxis: Subcu Lovenox. This note was generated with [employer] dictation software. It may contain incorrect words, spelling, and punctuation that were not noted in checking the note before signing. Inpatient E&M: 60749 Subs Hosp L2
[2020-06-17] MEDS: hydroCHLOROthiazide 12.5mg 12.5 MG PO (11:03)
--- NOTE | 2020-06-17 13:40 | CM.UR ---
RN CM Assessment Introduced role of RN CM to patient.? Patient is alert, oriented and able?to participate in RN CM Assessment. ?Care providers, pharmacy, and demographics verified. Presentation: Increased sob Admit Dx: mild chf Re-Admit: no Barriers/Issues: wears glasses and hearing aides. No other barriers noted. PCP: Dr. Whitaker Specialists: None Preferred Pharmacy: [facility] Insurance: [facility] Rx Benefit:? Yes. Denies any problems with copays, stating usually doesn't have any ?LNOK: , ESTIVEN LW/HPOA: None. Accepted booklet and instructions on how one can be done during stay of after dc. Living Arrangements:? Up/down duplex-->she lives in upstairs apartment. Total of 13 stairs to get in. States usually does ok with the stairs. States even with the increased sob did ok with them. ADL?s: independent Transportation: States she is able to drive but drives most of the time. No concerns regarding transportation. DME: grab bar HHC: none SNF: None Goal: home, no needs DC PLAN: Home, no needs anticipated. Alerted patient that case management will remain available should any needs arise. Verb understanding. Collin Robledo RN, CCM.
[2020-06-17] MEDS: hydrALAZINE 20 MG/ML Vial 10 MG IV (19:55)
[2020-06-17] MEDS: 0.9% Saline Lock 10 ML Syringe IV (19:56)
--- NOTE | 2020-06-17 21:02 | NURSING ---
c/o feeling sob . po 99% on ra. lungs cta.Pt appears anxious at this time. Encourage pt to relax. IS given and encourage pt to use every hour x 10. After using pt said cough up a little
--- NOTE | 2020-06-17 22:49 | NURSING ---
Pt c/o sob. Pt said when she falls asleep she wakes up quickly and feels sob. po 100 on applied at 2lnc ? sleep apena
[2020-06-18 03:03] VITALS: PULSE 64
[2020-06-18 05:00] VITALS: BP 137/99; PULSE 88; RESP 18; TEMP 36.8; O2SAT 99
[2020-06-18 07:00] VITALS: PULSE 69
[2020-06-18 07:50] VITALS: O2SAT 96
--- NOTE | 2020-06-18 07:59 | DCINST_ITS ---
- Discharge Diagnoses Current Active Problems: Current Active and Chronic Problems Hypertension (Chronic) Acute pulmonary edema (Acute) Hypertensive emergency (Acute) Hyperglycemia (Acute) Lactic acidosis (Acute) You will use the following diet at home:: Cardiac Your food should be the consistency of: Regular Discharge Activity: Return to Normal Activity Weight Bearing Status: Full weight bearing Call your doctor if you observe: Fever of 101 or Higher, Shortness of breath, Dizziness, Fainting spells, Chest pain, Increased palpitations (irregular heartbeat), Uncontrolled pain Instructions: Controlling High Blood Pressure, Tips for Using Less Salt, Taking Your Blood Pressure Allergies/Adverse Reactions: Allergies lisinopril Adverse Reaction (Verified 06/16/20 13:37) Other Medications to take at Discharge Albuterol Sulfate [Albuterol Sulfate Hfa] 1 - 2 puff INHALATION Q4H PRN 05/24/19 Estradiol 1 mg PO DAILY 05/24/19 Metoprolol(XL)Succ [Toprol Xl (Beta Shyla)] 50 mg PO DAILY 05/24/19 Progesterone, Micronized [Progesterone] 200 mg PO QMONTH 05/24/19 Terbinafine HCl 250 mg PO DAILY 05/24/19 Amlodipine [Norvasc] 10 mg PO DAILY #30 tab 06/18/20 hydroCHLOROthiazide [Hydrochlorothiazide] 12.5 mg PO DAILY #30 cap 06/18/20 The following prescriptions were given: hydroCHLOROthiazide [Hydrochlorothiazide] 12.5 mg PO DAILY #30 cap Transmission Status: Pending to [facility]30 Amlodipine [Norvasc] 10 mg PO DAILY #30 tab Transmission Status: Pending to [facility] Primary Care Physician: Piotr Whitaker DO [Primary Care Provider] - Please follow up with your Primary Care Physician in: 1 week. Test Results: Test results from this visit will be discussed in further detail at your follow- up appointment, if applicable.
[2020-06-18 09:34] VITALS: BP 135/86; PULSE 78; RESP 18; TEMP 36.8; O2SAT 100
[2020-06-18 09:38] VITALS: BP 135/86; PULSE 78
[2020-06-18] MEDS: amLODIPine 10 MG Tablet PO (09:38)
[2020-06-18] MEDS: hydroCHLOROthiazide 12.5mg 12.5 MG PO (09:38)
[2020-06-18] MEDS: Metoprolol(XL)Succ 50 MG Tablet PO (09:38)
--- NOTE | 2020-06-18 12:46 | DS.PCM_ITS ---
Discharge Date and Diagnosis - Problem List Patient Problems: Active and Suspected Problems Acute pulmonary edema (Acute) Hypertensive emergency (Acute) Hyperglycemia (Acute) Lactic acidosis (Acute) Date of Admission: 06/16/20 Date of Discharge: 06/18/20 - Primary Discharge Diagnosis Acute Problems: Active Problems #1 acute pulmonary edema. #2 hypertensive emergency. #3 hyperglycemia, diabetes ruled out. #4 lactic acidosis, attributed to highly elevated blood pressure, resolved. - Secondary Discharge Diagnosis Chronic Problems: Chronic Problems Hypertension (Chronic) Hospital Course and Treatment Imaging Results: Clinical Impression(s) from Imaging Studies Chest X-Ray 06/16/20 11:02 IMPRESSION: Mild degree of CHF. Electronically Signed: Enzo Chappell MD at 11:38 EST , Service support , Operations: None Procedures: 2-D Echocardiogram, EKG Summary of Care Provided: Patient seen and examined on the day of discharge and appeared to be stable to be discharged home. She denied any more orthopnea or shortness of breath. Her blood pressure under better control. Other vital signs are stable. The patient is a 64 year old F presented to the emergency room because of shortness of breath and orthopnea and she was found to have highly elevated blood pressure consistent with hypertensive emergency with evidence of endorgan damage which is the acute pulmonary edema. Upon arrival to ED, her blood pressure was 205/134. Chest x-ray showed bilateral pulmonary vascular congestion with curly B-lines. Her EKG revealed normal sinus rhythm without evidence of acute ischemic changes. 2D echocardiogram revealed normal LV size and function, ejection fraction was 50%, moderate pulmonary hypertension. Troponin was negative but her BNP was elevated. Her lactic acid was 2.2 which is attributed to highly elevated blood pressure and stress. No evidence of infection identified. Patient was admitted to intensive care unit, started on IV nicardipine drip. Her cardiac enzymes was done 3 times and they were negative. Lactic acid returned back to normal with IV fluids. Patient remained afebrile. Routine blood work was unremarkable apart from blood glucose of 172. Hemoglobin A1c done and it was 5.1%. Diabetes mellitus ruled out. Patient was found to have slight elevated LFTs which is attributed to hepatic congestion secondary to pulmonary edema. With controlling her blood pressure, LFT improved. She was started back on her metoprolol XL 50 mg daily, dose of Norvasc increased to 10 mg daily and she was started on HCTZ 12.5 mg p.o. daily. With those medications, her blood pressure improved and remained stable. Her symptoms resolved. Patient discharged home in a stable medical condition, discharged on Norvasc 10 mg p.o. daily, metoprolol XL 50 mg p.o. daily, HCTZ 12.5 mg p.o. daily, recommended to check her blood pressure at least twice daily and to write it down, recommended follow-up with PCP in 1 week. Patient Problems: Active and Suspected Problems Acute pulmonary edema (Acute) Hypertensive emergency (Acute) Hyperglycemia (Acute) Lactic acidosis (Acute) - Physical Exam Vitals/I&O's: Vital Signs Temp Pulse Resp BP Pulse Ox 98.3 F 78 18 135/86 H 100 06/18/20 09:34 06/18/20 09:38 06/18/20 09:34 06/18/20 09:38 06/18/20 09:34 Oxygen Delivery Method Room Air Weight: 149 lb 0.52 oz Body Mass Index (BMI) 28.3 Finger Stick Blood Glucose 124 Intake and Output for Last 24 Hours 06/16/20 06/17/20 06/18/20 23:59 23:59 23:59 Intake Total 306.25 / 331.25 2255.0 / 2255.0 300 / 300 Output Total 1400 / 1700 1000 / 1000 Balance -1093.75 / -1368.75 1255.0 / 1255.0 300 / 300 General: Alert, Oriented x3, Cooperative, No apparent distress HEENT: Atraumatic, PERRLA, EOMI, Normocephalic Oral: Moist Mucosa, No Gingival or Mucosal Lesions/ Ulcerations Neck: Supple, No JVD, Negative Carotid Bruits, Trachea Midline, Thyroid Normal Size and Texture Lungs: Clear to auscultation, Normal air movement, No rhonchi, No wheeze, No rales Cardiovascular: Regular rate, Regular Rhythm, Normal S1, Normal S2, PMI Normal Abdomen: Bowel Sounds Present, Soft, Non Tender, Non-Distended, No Hepato- splenomegaly Extremities: No clubbing, No cyanosis, No edema Skin: No rashes, No breakdown Lymphatic: No Cervical, Supraclavicular, or Inguinal Adenopathy Neurological: Cranial nerves II-XII grossly intact, Neuro grossly intact Psych/Mental Status: Normal Affect, Appropriate Microbiology Past 72 Hours 06/16/20 10:15 Mucosa - Nose SARS-CoV-2 Antigen (Rapid) - Final Discharge Activity: Return to Normal Activity Weight Bearing Status: Full weight bearing Call your doctor if you observe: Fever of 101 or Higher, Shortness of breath, Dizziness, Fainting spells, Chest pain, Increased palpitations (irregular heartbeat), Uncontrolled pain Home Medications: Medications to take at Discharge Albuterol Sulfate [Albuterol Sulfate Hfa] 1 - 2 puff INHALATION Q4H PRN 05/24/19 Estradiol 1 mg PO DAILY 05/24/19 Metoprolol(XL)Succ [Toprol Xl (Beta Shyla)] 50 mg PO DAILY 05/24/19 Progesterone, Micronized [Progesterone] 200 mg PO QMONTH 05/24/19 Terbinafine HCl 250 mg PO DAILY 05/24/19 Amlodipine [Norvasc] 10 mg PO DAILY #30 tab 06/18/20 hydroCHLOROthiazide [Hydrochlorothiazide] 12.5 mg PO DAILY #30 cap 06/18/20 Following Prescriptions Were Given to Patient: hydroCHLOROthiazide [Hydrochlorothiazide] 12.5 mg PO DAILY #30 cap Transmission Status: Received by [facility] Amlodipine [Norvasc] 10 mg PO DAILY #30 tab Transmission Status: Received by [facility] Primary Care Physician: Piotr Whitaker DO [Primary Care Provider] - Please follow up with your Primary Care Physician in: 1 week. Patient Instructions: Controlling High Blood Pressure, Tips for Using Less Salt, Taking Your Blood Pressure Disposition: Home Minutes spent on discharge:: 32 Patient Condition:: Stable Medical Necessity - Tobacco Use Smoking Status: Former smoker Tobacco Use: Cigarettes Meaningful Use Info Meaningful Use Diagnoses (Choose all that apply): None applicable Inpatient E&M: 02816 Disch Hosp
== END 2020-06-18 11:53 | disposition home or self-care (01) | DRG 143 ==
LOC: ED 11:23 → ICU 11:57 → PCU 06-17 15:59
PROVIDERS: Admitting Provider Hospitalist; Emergency Provider Emergency Medicine; PCP Student in an Organized Health Care Education/Training Program; Visit Provider Hospitalist
DX: J81.0 Acute pulmonary edema (principal); E87.2 Acidosis; I10 Essential (primary) hypertension; I16.1 Hypertensive emergency; R73.9 Hyperglycemia, unspecified; I27.20 Pulmonary hypertension, unspecified; Z79.899 Other long term (current) drug therapy; Z87.891 Personal history of nicotine dependence
CPT/HCPCS: 71045; 80053; 81001; 82962; 83036; 83605; 83880; 84484; 85025; 85610; 85730; 87040; 87426; 93005; 93306; 97802; 99285; J7030; J7050; A4216

== ENCOUNTER 2021-07-05 14:28 | Emergency (ER) | payer MEDICAID, SELFPAY ==
[2021-07-05 14:28] VITALS: BP 176/101; PULSE 67; RESP 14; TEMP 36.3; O2SAT 100; BMI 24.9
--- NOTE | 2021-07-05 15:00 | CT_ITS ---
HISTORY: RLQ pain. TECHNIQUE: Helically acquired images were obtained of the abdomen and pelvis with IV contrast. A radiation dose optimization technique was used for this scan. IV Contrast dosage and agent: 100 mL [id number]. Oral contrast: None. # of images incl. paperwork: 369. COMPARISON: None. FINDINGS: LOWER CHEST: Lung bases clear. BOWEL: Bowel including appendix nondilated. No terminal ileal, periappendiceal, or focal pericolonic inflammation. LIVER/SPLEEN: Homogeneous. GALLBLADDER/BILIARY TREE: Gallbladder present. KIDNEYS: 5.4 cm right lower pole cyst. No hydronephrosis. Pancreas/ADRENAL GLANDS: Unremarkable. PERITONEUM: No significant ascites. VESSELS: No abdominal aortic aneurysm. Mild atherosclerosis. PELVIC ORGANS: 2.3 x 3.8 cm septated right ovarian cystic lesion. BONES: Intact. CT/Abdomen/Pelvis W IV Cont ONLY IMPRESSION: 3.8 cm septated right ovarian cystic lesion. Recommend pelvic ultrasound to better characterize this cyst. 5.4 cm right renal cyst. Individualized dose optimization techniques were used for this CT. at 1617 Reported and signed by: Diamond Hart MD Electronically Signed: Diamond Hart MD at 16:16 EST ,
--- NOTE | 2021-07-05 15:04 | EX.ED.DYSGE1 ---
HPI <GAVIN Hollis - Last Filed: 07/05/21 17:48> History of Present Illness Chief Complaint: Abd Pain Narrative Narrative: 65-year-old female with PMH of HTN presents with right lower quadrant abdominal pain. Around 5 days ago she developed pain in her right low back. She was seen at urgent care and prescribed prednisone for possible sciatica. Over the last few days the pain in her back lessened but she has pain in her right lower quadrant/inguinal region. It waxes and wanes with no known pattern. She also has had 2-3 episodes of vomiting started yesterday. She has no pain in her buttocks or lower extremities, paresthesias, saddle anesthesia, or bladder or bowel incontinence. Denies fever or chills. Denies cardiac or respiratory symptoms. She has some chronic constipation but states she had a normal BM this morning and denies melena or hematochezia. She has been urinating normally. She has no history of kidney stones. Prior abdominal surgeries include umbilical hernia repair and CS x1. She was seen in urgent care today and sent in to rule out an abdominal process. PFSH <GAVIN Hollis - Last Filed: 07/05/21 17:48> [facility] Medical History (Updated 07/05/21 @ 17:[address] Zia Vazquez MD) Hypertension Home Medications albuterol sulfate 1 - 2 puff INHALATION Q4H PRN 05/24/19 [History Last Taken Unknown] estradiol 1 mg PO DAILY 05/24/19 [History Last Taken Unknown] metoprolol succinate 50 mg PO DAILY 05/24/19 [History Last Taken Unknown] progesterone micronized 200 mg PO QMONTH 05/24/19 [History Last Taken Unknown] terbinafine HCl 250 mg PO DAILY 05/24/19 [History Last Taken Unknown] amlodipine 10 mg PO DAILY #30 tab 06/18/20 [Rx Last Taken Unknown] hydrochlorothiazide 12.5 mg PO DAILY #30 cap 06/18/20 [Rx Last Taken Unknown] ondansetron 4 mg PO Q8H PRN PRN #10 tab 07/05/21 [Rx Last Taken Unknown] oxycodone-acetaminophen [Percocet] 1 tab PO Q6H PRN 3 Days #12 tab 07/05/21 [Rx Last Taken Unknown] Allergy/AdvReac Type Severity Reaction Status Date / Time lisinopril AdvReac Other Verified 07/05/21 14:48 Surgical History (Updated 07/05/21 @ 14:47 by Shankar Moon) History of hernia repair Previous section Social History Smoking Status: Former smoker ROS <GAVIN Hollis - Last Filed: 07/05/21 17:48> ROS ED ROS Narrative Constitutional: Negative for fever, chills, malaise. Eyes: Negative for visual change. ENT: Negative for sore throat, ear pain, rhinorrhea. CVS: Negative for palpitations, chest pain, syncope. Respiratory: Negative for shortness of breath, cough, orthopnea. GI: Positive for abdominal pain, nausea, vomiting. Negative for diarrhea, constipation, melena, hematochezia. : Negative for dysuria, hematuria or frequency. Neuro: Negative for headache, motor/sensory dysfunction. Skin: Negative for rash, abscess, or wound. Musc: Negative for joint pain, swelling, trauma. Heme: Negative for easy bruising, bleeding, lymphadenopathy. EXAM <GAVIN Hollis - Last Filed: 07/05/21 17:48> Physical Exam Narrative Exam Narrative: CONST: Patient sitting appears in mild distress but nontoxic. EYES: Normal inspection. ENT: Normal inspection, moist mucous membranes. NECK: Normal inspection. RESP: No respiratory distress, CTAB. CVS: Regular rate and rhythm, no murmur, no gallop. ABD: Soft with mild RLQ tenderness, no guarding or rebound, nondistended, no hepatosplenomegaly. Back: Normal inspection, no CVA tenderness. SKIN: Color normal, no rash, warm, dry, intact. EXTREMITIES: Normal appearance, no pedal edema. 5/5 strength in bilateral hip flexion, knee flexion/extension, DF/PF. Normal sensation to light touch. 2+ DP pulses. Negative straight leg raise bilaterally. NEURO: Oriented x4. PSYCH: Normal affect. Const Vital Signs: 07/05/21 14:28 07/05/21 17:24 Temperature 97.3 F L Temperature Source Temporal Pulse Rate 67 76 Respiratory Rate 14 18 Blood Pressure 176/101 H 172/95 H Blood Pressure Mean 126 120 Pulse Ox 100 99 Oxygen Delivery Method Room Air Room Air <Dr. Zia Vazquez MD - Last Filed: 07/05/21 17:55> Physical Exam Const Vital Signs: 07/05/21 14:28 07/05/21 17:24 Temperature 97.3 F L Temperature Source Temporal Pulse Rate 67 76 Respiratory Rate 14 18 Blood Pressure 176/101 H 172/95 H Blood Pressure Mean 126 120 Pulse Ox 100 99 Oxygen Delivery Method Room Air Room Air [facility] <GAVIN Hollis - Last Filed: 07/05/21 17:48> [facility] Narrative Medical decision making narrative: Patient presents with RLQ pain. Initially started his right lower back pain that migrated to the RLQ. She also developed vomiting. She appears well and nontoxic. She was slightly hypertensive, otherwise normal vital signs. On exam her cardiopulmonary exam is within normal limits. Her abdomen has some tenderness in the right lower quadrant but is soft and nondistended. No peritoneal signs. No CVA tenderness is present. CBC, BMP are within normal limits. Urinalysis shows no acute process. CT shows a 3.8 cm septated right ovarian cystic lesion which is the likely etiology of her pain. The differential is ovarian cyst versus neoplasm and it will be further evaluated with a pelvic ultrasound. Incidentally she also has a right renal cyst which will need outpatient follow-up. TV?US was obtained and shows a normal right ovary with a right ovarian cyst approximately 2.9 x 2.3 x 1.3 cm with septations. Due to her age I discussed with her that neoplasm is on the differential. I spoke with on-call [facility] to arrange close follow-up. I prescribed Percocet and Zofran to take as needed and she was discharged in stable condition. 1. Abdominal pain 2. Right ovarian mass Lab Data Labs: Laboratory Results - last 24 hr 07/05/21 07/05/21 07/05/21 15:05 15:05 16:05 WBC 5.9 RBC 4.48 Hgb 14.4 Hct 42.8 MCV 95.5 MCH 32.1 H MCHC 33.6 RDW Std Deviation 46.0 H RDW Coeff of Cj 13.0 Plt Count 308 MPV 9.0 Sodium 136 Potassium 4.3 Chloride 105 Carbon Dioxide 25.0 Anion Gap 6 BUN 13 Creatinine 0.84 Estim Creat Clear Calc 51.06 Est GFR (MDRD) Af Amer 88 Est GFR (MDRD) Non-Af 73 BUN/Creatinine Ratio 15.5 Glucose 126 H Calcium 9.4 Urine Color Yellow Urine Clarity Sl. Cloudy Urine pH 7.0 Ur Specific [place] 1.010 Urine Protein Negative Urine Glucose (UA) Normal Urine Ketones 5 H Urine Occult Blood Negative Urine Nitrite Negative Urine Bilirubin Negative Urine Urobilinogen Normal Ur Leukocyte Esterase Negative Urine RBC 0 SEEN Urine WBC 0 SEEN Ur Squamous Epith Cells 0-5 SEEN Urine Bacteria 0 SEEN Urine Mucus 0 SEEN Radiography Diagnostic Testing: Clinical Impression(s) from Imaging Studies Abdomen/Pelvis CT 07/05/21 15:00 IMPRESSION: 3.8 cm septated right ovarian cystic lesion. Recommend pelvic ultrasound to better characterize this cyst. 5.4 cm right renal cyst. Individualized dose optimization techniques were used for this CT. at 1617 Reported and signed by: Diamond Hart MD Electronically Signed: Diamond Hart MD at 16:16 EST , Transvaginal US 07/05/21 16:27 IMPRESSION: 1. Septated mildly complex right ovarian cystic lesion with underlying cystadenoma not excluded. Recommend gynecologic consultation for further assessment management given patient age. 2. Endometrial thickness of the upper limits of normal at 5 mm with likely endometrial fluid. Electronically Signed: Abdoulaye Joya DO at 17:34 EST , <Dr. Zia Vazquez MD - Last Filed: 07/05/21 17:55> [facility] MDM Narrative Medical decision making narrative: An independent history and physical was performed by me. Patient presents for evaluation of right lower quadrant pain. Initially had right lower back pain that has migrated to the right lower quadrant. She has history of small polyp on prior colonoscopy performed by Dr. Zimmerman several years ago. She is uncertain whether she does or does not have diverticulosis. She denies dysuria, frequency, urgency or hematuria. She denies vaginal bleeding. She denies prior history of any gynecologic problems. She denies weight loss or night sweats other than hot flashes, which she has had for the past 17 years. Vital signs are remarkable for elevated blood pressure. Patient appears in no distress. HEENT exam is unremarkable. Lungs are clear to auscultation. Heart is regular. Abdomen is remarkable tenderness inferior McBurney's point. Bowel sounds are slightly diminished. With deep palpation patient does not guard. There is no percussion tenderness. She has no CVA tenderness. There is no obvious palpable inguinal hernia. Differential diagnosis would include diverticulitis, appendicitis, ureterolithiasis, gynecologic pathology and malignancy. [facility] blood work was ordered and CT of the abdomen pelvis with IV contrast. Patient observed walking to restroom. She is holding her right side because of discomfort with ambulation. Lab Data Attestation: I reviewed the patient's lab results. Labs: Laboratory Results - last 24 hr 07/05/21 07/05/21 07/05/21 15:05 15:05 16:05 WBC 5.9 RBC 4.48 Hgb 14.4 Hct 42.8 MCV 95.5 MCH 32.1 H MCHC 33.6 RDW Std Deviation 46.0 H RDW Coeff of Cj 13.0 Plt Count 308 MPV 9.0 Sodium 136 Potassium 4.3 Chloride 105 Carbon Dioxide 25.0 Anion Gap 6 BUN 13 Creatinine 0.84 Estim Creat Clear Calc 51.06 Est GFR (MDRD) Af Amer 88 Est GFR (MDRD) Non-Af 73 BUN/Creatinine Ratio 15.5 Glucose 126 H Calcium 9.4 Urine Color Yellow Urine Clarity Sl. Cloudy Urine pH 7.0 Ur Specific [place] 1.010 Urine Protein Negative Urine Glucose (UA) Normal Urine Ketones 5 H Urine Occult Blood Negative Urine Nitrite Negative Urine Bilirubin Negative Urine Urobilinogen Normal Ur Leukocyte Esterase Negative Urine RBC 0 SEEN Urine WBC 0 SEEN Ur Squamous Epith Cells 0-5 SEEN Urine Bacteria 0 SEEN Urine Mucus 0 SEEN Radiography Diagnostic Testing: Clinical Impression(s) from Imaging Studies Abdomen/Pelvis CT 07/05/21 15:00 IMPRESSION: 3.8 cm septated right ovarian cystic lesion. Recommend pelvic ultrasound to better characterize this cyst. 5.4 cm right renal cyst. Individualized dose optimization techniques were used for this CT. at 1617 Reported and signed by: Diamond Hart MD Electronically Signed: Diamond Hart MD at 16:16 EST , Transvaginal US 07/05/21 16:27 IMPRESSION: 1. Septated mildly complex right ovarian cystic lesion with underlying cystadenoma not excluded. Recommend gynecologic consultation for further assessment management given patient age. 2. Endometrial thickness of the upper limits of normal at 5 mm with likely endometrial fluid. Electronically Signed: Abdoulaye Joya DO at 17:34 EST , Discharge Plan Triage Chief Complaint: Abd Pain ED Provider: Nataly Horne Dx/Rx/DC Orders Clinical Impression: Mass of right ovary, Acute right lower quadrant pain Instructions: ED Ovarian Cyst Prescriptions: New ondansetron 4 mg tablet,disintegrating 4 mg PO Q8H PRN PRN (Reason: Nausea) Qty: 10 RF: 0 oxycodone-acetaminophen [Percocet] 5-325 mg tablet 1 tab PO Q6H PRN (Reason: pain) 3 Days Qty: 12 RF: 0 No Action metoprolol succinate 50 MG tablet 50 mg PO DAILY RF: 0 terbinafine HCl 250 MG tablet 250 mg PO DAILY RF: 0 estradiol 1 MG tablet 1 mg PO DAILY RF: 0 progesterone micronized 200 MG capsule 200 mg PO QMONTH RF: 0 albuterol sulfate 8.5 GM HFA aerosol inhaler 1 - 2 puff inhalation Q4H PRN (Reason: Sob &/Or Wheezing) RF: 0 amlodipine 10 MG tablet 10 mg PO DAILY Qty: 30 RF: 0 hydrochlorothiazide 12.5 MG capsule 12.5 mg PO DAILY Qty: 30 RF: 0 Primary Care Provider: Piotr Whitaker Referrals: Piotr Whitaker DO [Primary Care Provider] - Roque Moe MD [STAFF PHYSICIAN] - Activity Restrictions/Additional Instructions: Your blood work and urine look normal. Your CT scan showed that you have a cyst on your right ovary. We did an ultrasound to see the cyst better and it looks like your ovaries still have good blood flow. At your age there is concerned that the cyst could be cancerous but we cannot tell just from the ultrasound. It will need biopsy. 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 You need to call them for an appointment [facility] for further evaluation. I also prescribed you Percocet for pain and Zofran to take as needed for nausea and vomiting. If your symptoms worsen before you can see the doctor please come back to the ER. Disposition Disposition: Home, Self Care
[2021-07-05 15:10] LABS: Hematocrit 42.8 % (37-47); Hemoglobin 14.4 g/dL (12.0-15.0); Mean Corp Hgb Conc 33.6 g/dL (32-36); Mean Corpuscular Hgb 32.1 pg (27.0-32.0); Mean Corpuscular Volume 95.5 fL (81-99); Platelet Count 308 K/mm3 (150-450); Red Blood Count 4.48 M/mm3 (4.2-5.4); White Blood Count 5.9 K/mm3 (4.4-11.0)
[2021-07-05] MEDS: Morphine 4 MG/ML Syringe IV ×2 (15:18→17:20)
[2021-07-05] MEDS: 0.9% Normal Saline 1,000 ML 999 ML IV (15:19)
[2021-07-05] MEDS: Ondansetron 4 MG/2 ML Vial IV ×2 (15:19→17:21)
[2021-07-05 15:43] LABS: Anion Gap 6 (5-15); BUN 13 mg/dL (7-18); BUN/Creat Ratio 15.5 RATIO (10-20); Calcium,Total 9.4 mg/dL (8.5-10.1); Chloride 105 mmol/L (98-107); Creatinine, Serum 0.84 mg/dL (0.55-1.02); EST Glomerular Filtration Rate 73 mL/min (>60); Est Glom Filt Rate - Afr Amer 88 mL/min (>60); Estimated Creatinine Clearance 51.06 ml/min; Glucose 126 mg/dL (74-106); Potassium 4.3 mmol/L (3.5-5.1); Sodium Level 136 mmol/L (136-145)
[2021-07-05 16:15] LABS: Bacteria 0 SEEN /hpf (None Seen); Mucous, Urine 0 SEEN /hpf (<or=2+); Red Blood Cells-Urine 0 SEEN /hpf (0-5); White Blood Cells 0 SEEN /hpf (0-5)
[2021-07-05 16:19] LABS: Color, Urine Yellow (Yellow); Glucose, Dipstick Normal (Normal); Ketone-Dipstick 5 mg/dl (Negative); Leukocyte Esterase-Dipstick Negative /ul (Negative); Nitrite-Dipstick Negative (Negative); Occult Blood-Urine Negative /ul (Negative); Protein-Dipstick Negative (Negative); Urine Bilirubin Dipstick Negative (Negative); Urine Clarity Sl. Cloudy (Clear); Urine Urobilinogen Normal (Normal)
--- NOTE | 2021-07-05 16:27 | US_ITS ---
STUDY: ULTRASOUND TRANSVAGINAL CLINICAL: Female, 65 years old. Right ovarian mass septated cystic in appearance C -- Right septated ovarian cystic mass need arterial D TECHNIQUE: Transvaginal COMPARISON: None. FINDINGS: Normal uterine size measuring 7.3 x 4.5 x 3.5 cm in maximal craniocaudal dimension. There are no myometrial masses. Normal endometrial thickness measuring 5 mm. There are no endometrial masses, and there is no fluid in the endometrial cavity. Normal uterine cervix. Normal right ovary, measuring 4.5 x 3.2 x 1.8 cm. There is demonstrated right ovarian hypoechoic cyst measuring 2.9 x 2.3 x 1.3 cm with mild septations. Left ovary is not visualized. There is no free fluid in the pelvis. Polycystic ovary disease: No. US/Transvaginal Non- IMPRESSION: 1. Septated mildly complex right ovarian cystic lesion with underlying cystadenoma not excluded. Recommend gynecologic consultation for further assessment management given patient age. 2. Endometrial thickness of the upper limits of normal at 5 mm with likely endometrial fluid. Electronically Signed: Abdoulaye Joya DO at 17:34 EST ,
[2021-07-05 16:28] LABS: Squamous Epithelial Cells - UA 0-5 SEEN /hpf (5-10)
[2021-07-05] MEDS: 0.9% Normal Saline 1,000 ML 150 ML IV (17:21)
[2021-07-05 17:24] VITALS: BP 172/95; PULSE 76; RESP 18; O2SAT 99
[2021-07-05] MEDS: DiphenhydrAMINE 50 MG/ML Syringe 25 MG IV (17:33)
[2021-07-05 17:56] VITALS: BP 157/80; PULSE 73; RESP 18
== END 2021-07-05 18:00 | disposition home or self-care (01) ==
PROVIDERS: Emergency Provider Physician Assistant; PCP Student in an Organized Health Care Education/Training Program; Visit Provider Physician Assistant
DX: N83.201 Unspecified ovarian cyst, right side (principal); I10 Essential (primary) hypertension; N28.1 Cyst of kidney, acquired; Z87.891 Personal history of nicotine dependence; Z79.899 Other long term (current) drug therapy
CPT/HCPCS: 74177; 76830; 80048; 81001; 85027; 96361; 96374; 96375; 96376; 99285; J7030; Q9967; A4216; J2405

== ENCOUNTER 2021-07-19 12:18 | Outpatient (CLI) | payer MEDICAID, SELFPAY ==
[2021-07-23 08:19] LABS: Carbohydrate Ag 19-9 2261 < 2 U/mL (0-35)
[2021-07-23 08:20] LABS: Cancer Antigen 125 10.4 U/mL (0.0-38.1); Carcinoembryonic Antigen 3.3 ng/mL (0.0-4.7)
== END 2021-07-19 23:59 | disposition home or self-care (01) ==
LOC: WOBLAB 12:21
PROVIDERS: PCP Student in an Organized Health Care Education/Training Program; Visit Provider Obstetrics & Gynecology
DX: N83.209 Unspecified ovarian cyst, unspecified side (principal)
CPT/HCPCS: 36415; 82378; 86301; 86304